=== PATIENT | male | born 1950 | race Caucasian/White ===

== ENCOUNTER 2018-03-17 11:29 | Outpatient (RCR) | payer SELFPAY | END 2018-03-18 23:59 | disposition home or self-care (01) | LOC: CR 11:29 | PROVIDERS: Visit Provider Family Medicine | DX: Z51.89 Encounter for other specified aftercare (principal); Z95.1 Presence of aortocoronary bypass graft ==

== ENCOUNTER 2018-04-14 08:00 | Outpatient (RCR) | payer SELFPAY | END 2018-04-17 23:59 | disposition home or self-care (01) | LOC: CR 08:00 | PROVIDERS: Visit Provider Family Medicine | DX: Z51.89 Encounter for other specified aftercare (principal); Z95.1 Presence of aortocoronary bypass graft ==

== ENCOUNTER 2018-05-06 12:43 | Outpatient (REF) | payer MEDICARE, BC, SELFPAY ==
[2018-05-06 13:30] LABS: HCT 45.8 % (40.0-50.0); HGB 15.1 g/dL (13.5-17.5); Mean Corpuscular Hemoglobin 31.2 pg (27.0-33.0); Mean Corpuscular Volume 94.6 fL (80-95); Mean Platelet Volume 10.5 fL (8.0-11.0); Platelet Count 218 x1000/uL (130-400); RBC 4.84 m/cumm (4.50-6.00); RBC Distribution Width 14.7 % (11.8-14.1); White Blood Cell Count 8.94 k/cumm (4.4-10.8)
[2018-05-06 13:57] LABS: ALT 49 U/L (12-78); AST 48 U/L (15-37); Albumin 3.9 g/dL (3.4-5.0); Alkaline Phosphatase 60 U/L (46-116); Anion Gap 11.3 mmol/L (3-11); BUN 13 mg/dL (7-18); Bilirubin, Total 0.5 mg/dL (0.2-1.0); CO2 27.7 mmol/L (21.0-32.0); CREATININE 1.22 mg/dL (0.70-1.30); Calcium 9.3 mg/dL (8.5-10.1); Chloride 101 mmol/L (98-107); Cholesterol 123 mg/dL (50-200); Estimated GFR 59.07 (mL/min/1.73m2); Glucose 126 mg/dL (70-100); HDL Cholesterol 38 mg/dL (40-60); LDL CHOLESTEROL 35 mg/dL (<100); Potassium 4.8 mmol/L (3.5-5.1); Sodium 140 mmol/L (136-145); Total Protein 7.7 g/dL (6.4-8.2); Triglyceride 384 mg/dL (30-150)
== END 2018-05-06 13:03 ==
LOC: NCHCN 12:43
PROVIDERS: Visit Provider Family Medicine
DX: E78.5 Hyperlipidemia, unspecified (principal); M10.9 Gout, unspecified
CPT/HCPCS: 80053; 80061; 83721; 85027; 84550

== ENCOUNTER 2018-05-17 08:00 | Outpatient (RCR) | payer SELFPAY | END 2018-05-18 23:59 | disposition home or self-care (01) | LOC: CR 08:00 | PROVIDERS: Visit Provider Family Medicine | DX: Z95.1 Presence of aortocoronary bypass graft (principal); Z51.89 Encounter for other specified aftercare ==

== ENCOUNTER 2018-06-16 08:00 | Outpatient (RCR) | payer SELFPAY | END 2018-06-17 23:59 | disposition home or self-care (01) | LOC: CR 08:00 | PROVIDERS: Visit Provider Family Medicine | DX: Z91.5 Personal history of self-harm (principal); Z51.89 Encounter for other specified aftercare ==

== ENCOUNTER 2018-07-07 08:00 | Outpatient (RCR) | payer SELFPAY | END 2018-07-18 23:59 | disposition home or self-care (01) | LOC: CR 08:00 | PROVIDERS: Visit Provider Family Medicine | DX: Z95.1 Presence of aortocoronary bypass graft (principal); Z51.89 Encounter for other specified aftercare ==

== ENCOUNTER 2018-08-18 08:00 | Outpatient (RCR) | payer SELFPAY | END 2018-08-18 23:59 | disposition home or self-care (01) | LOC: CR 08:00 | PROVIDERS: Visit Provider Family Medicine | DX: Z95.1 Presence of aortocoronary bypass graft (principal); Z51.89 Encounter for other specified aftercare ==

== ENCOUNTER 2018-09-15 12:51 | Outpatient (RCR) | payer SELFPAY | END 2018-09-15 23:59 | disposition home or self-care (01) | LOC: CR 12:51 | PROVIDERS: Visit Provider Family Medicine | DX: Z95.1 Presence of aortocoronary bypass graft (principal); Z51.89 Encounter for other specified aftercare ==

== ENCOUNTER 2018-10-13 08:00 | Outpatient (RCR) | payer SELFPAY | END 2018-10-16 23:59 | disposition home or self-care (01) | LOC: CR 08:00 | PROVIDERS: Visit Provider Family Medicine | DX: Z95.1 Presence of aortocoronary bypass graft (principal); Z51.89 Encounter for other specified aftercare ==

== ENCOUNTER 2018-11-15 08:00 | Outpatient (RCR) | payer SELFPAY | END 2018-11-15 23:59 | disposition home or self-care (01) | LOC: CR 08:00 | PROVIDERS: Visit Provider Family Medicine | DX: Z95.1 Presence of aortocoronary bypass graft (principal); Z51.89 Encounter for other specified aftercare ==

== ENCOUNTER 2018-12-15 13:31 | Outpatient (RCR) | payer SELFPAY | END 2018-12-16 23:59 | disposition home or self-care (01) | LOC: CR 13:31 | PROVIDERS: Visit Provider Family Medicine | DX: Z95.1 Presence of aortocoronary bypass graft (principal); Z51.89 Encounter for other specified aftercare ==

== ENCOUNTER 2019-01-12 11:23 | Outpatient (RCR) | payer SELFPAY | END 2019-01-15 23:59 | disposition home or self-care (01) | LOC: CR 11:23 | PROVIDERS: Visit Provider Family Medicine | DX: Z95.1 Presence of aortocoronary bypass graft (principal); Z51.89 Encounter for other specified aftercare ==

== ENCOUNTER 2019-02-14 13:26 | Outpatient (RCR) | payer SELFPAY | END 2019-02-15 23:59 | disposition home or self-care (01) | LOC: CR 13:26 | PROVIDERS: Visit Provider Family Medicine | DX: Z95.1 Presence of aortocoronary bypass graft (principal); Z51.89 Encounter for other specified aftercare ==

== ENCOUNTER 2019-03-16 08:00 | Outpatient (RCR) | payer SELFPAY | END 2019-03-18 23:59 | disposition home or self-care (01) | LOC: CR 08:00 | PROVIDERS: Visit Provider Family Medicine | DX: Z95.1 Presence of aortocoronary bypass graft (principal); Z51.89 Encounter for other specified aftercare ==

== ENCOUNTER 2019-04-13 11:56 | Outpatient (RCR) | payer SELFPAY | END 2019-04-17 23:59 | disposition home or self-care (01) | LOC: CR 11:56 | PROVIDERS: Visit Provider Family Medicine | DX: Z95.1 Presence of aortocoronary bypass graft (principal); Z51.89 Encounter for other specified aftercare ==

== ENCOUNTER 2019-05-02 10:21 | Outpatient (REF) | payer MEDICARE, BC, SELFPAY ==
[2019-05-02 22:09] LABS: Hemoglobin A1C 6.6 % (4.5-6.2)
[2019-05-02 22:16] LABS: Anion Gap 11.3 mmol/L (3-11); BUN 15 mg/dL (7-18); CO2 26.7 mmol/L (21.0-32.0); CREATININE 1.21 mg/dL (0.70-1.30); Calcium 9.3 mg/dL (8.5-10.1); Chloride 101 mmol/L (98-107); Estimated GFR 59.46 (mL/min/1.73m2); Glucose 118 mg/dL (70-100); Potassium 4.6 mmol/L (3.5-5.1); Sodium 139 mmol/L (136-145)
== END 2019-05-02 10:41 ==
LOC: NCHCN 10:21
PROVIDERS: PCP Internal Medicine; Visit Provider Internal Medicine
DX: R73.9 Hyperglycemia, unspecified (principal); E78.5 Hyperlipidemia, unspecified; I50.9 Heart failure, unspecified
CPT/HCPCS: 80048; 83036

== ENCOUNTER 2019-05-18 11:59 | Outpatient (RCR) | payer SELFPAY | END 2019-05-18 23:59 | disposition home or self-care (01) | LOC: CR 11:59 | PROVIDERS: Visit Provider Family Medicine | DX: Z95.1 Presence of aortocoronary bypass graft (principal); Z51.89 Encounter for other specified aftercare ==

== ENCOUNTER 2019-05-25 01:10 | Outpatient (CLI) | payer MEDICARE, BC, SELFPAY ==
--- NOTE | 2019-05-25 09:30 | NS.NUTBLAN_ITS ---
DESCRIPTION: Marco Javed is referred for diabetes self management for newly diagnosed type 2 diabetes. In fact he does not have 2 fasting blood sugars of 126 or greater and thus does not meet his insurance criteria for type 2 diabetes. He is seen today for Medical Nutrition Therapy to prevent progression of A1c. His has well controlled type 2 diabetes and guides him Regardless, Marco is motivated to prevent type 2 diabetes complications. Breakfast is 1 slice bread and butter with 2 eggs and an occasional bagel. Lunch was hamburger and fries with a beer out for lunch, but usually has homemade vegetable soup. After eating out he had a salad for supper. Evening snack are few chips 3 times a week or cheese. He has been eating grapes or dates daily. He has one alcoholic drink sometimes with a sweet mixer or wine daily. Marco is lactose intolerant. He states he does love bagel, bread and pasta. He walks daily and participates in cardiac rehab exercise twice weekly. INTERVENTION: Reviewed criteria for diabetes diagnosis and importance of early intensive intervention to prevent progression.Explained prevention strategies for PREVENTT2. He states he started that class once but did not find it useful and does not consider it an option at this time. Reviewed his food choices and carbohydrate impact. Reviewed diabetes food guide focused on increasing vegetables and decreasing simple sugar. Discussed increased physical activity despite his already achieving more than 160 minutes a week. He feels he could increase his time on the treadmill and walk further outside. PLAN: Marco will increase his physical activity by a few minutes every day have a 1/2 bagel for breakfast; use whole grain; limit sweets daily He will be in touch if his A1c increases in August and if questions arise in the meantime. less than 15 minutes face to face MNT
== END 2019-05-25 01:30 ==
PROVIDERS: PCP Internal Medicine; Visit Provider Dietitian, Registered
DX: R73.03 Prediabetes (principal); Z71.3 Dietary counseling and surveillance

== ENCOUNTER 2019-06-13 15:14 | Outpatient (RCR) | payer SELFPAY | END 2019-06-17 23:59 | disposition home or self-care (01) | LOC: CR 15:14 | PROVIDERS: PCP Internal Medicine; Visit Provider Family Medicine | DX: Z95.1 Presence of aortocoronary bypass graft (principal); Z51.89 Encounter for other specified aftercare ==

== ENCOUNTER 2019-07-13 08:00 | Outpatient (RCR) | payer SELFPAY | END 2019-07-18 23:59 | disposition home or self-care (01) | LOC: CR 08:00 | PROVIDERS: PCP Internal Medicine; Visit Provider Family Medicine | DX: Z95.1 Presence of aortocoronary bypass graft (principal); Z51.89 Encounter for other specified aftercare ==

== ENCOUNTER 2019-08-17 08:00 | Outpatient (RCR) | payer SELFPAY | END 2019-08-18 23:59 | disposition home or self-care (01) | LOC: CR 08:00 | PROVIDERS: PCP Internal Medicine; Visit Provider Family Medicine | DX: Z95.1 Presence of aortocoronary bypass graft (principal); Z51.89 Encounter for other specified aftercare ==

== ENCOUNTER 2019-09-07 22:14 | Outpatient (REF) | payer MEDICARE, BC, SELFPAY ==
[2019-09-07 22:32] LABS: Cholesterol 148 mg/dL (<200); HDL Cholesterol 37 mg/dL (40-60); Triglyceride 470 mg/dL (<150)
[2019-09-07 22:45] LABS: LDL CHOLESTEROL 39 mg/dL (<100)
== END 2019-09-07 22:34 ==
LOC: NCHCN 22:14
PROVIDERS: PCP Internal Medicine; Visit Provider Internal Medicine
DX: E11.9 Type 2 diabetes mellitus without complications (principal); I25.810 Atherosclerosis of coronary artery bypass graft(s) without angina pectoris; I50.9 Heart failure, unspecified; M10.9 Gout, unspecified; K21.9 Gastro-esophageal reflux disease without esophagitis
CPT/HCPCS: 80061; 83721

== ENCOUNTER 2019-09-14 08:00 | Outpatient (RCR) | payer SELFPAY | END 2019-09-16 23:59 | disposition home or self-care (01) | LOC: CR 08:00 | PROVIDERS: PCP Internal Medicine; Visit Provider Family Medicine | DX: Z95.1 Presence of aortocoronary bypass graft (principal); Z51.89 Encounter for other specified aftercare ==

== ENCOUNTER 2019-09-26 08:00 | Outpatient (RCR) | payer SELFPAY | END 2019-10-17 23:59 | disposition home or self-care (01) | LOC: CR 08:00 | PROVIDERS: PCP Internal Medicine; Visit Provider Family Medicine | DX: Z95.1 Presence of aortocoronary bypass graft (principal); Z51.89 Encounter for other specified aftercare ==

== ENCOUNTER 2019-10-31 20:06 | Emergency (ER) | payer MEDICARE, BC, SELFPAY ==
[2019-10-31] VITALS (16 sets, daily range): BP systolic 119–164; BP diastolic 54–129; PULSE 62–93; RESP 14–24; TEMP 36.6; O2SAT 94–97
--- NOTE | 2019-10-31 20:20 | ED.GENADUL_ITS ---
Discharge Plan Disposition Patient Disposition: HOME Condition: Stable Discharge Details Chief Complaint: Chest Pain Clinical Impression: Chest pain Primary Care Provider: Edd Garner ED Provider: Nallely Isaacs Home Meds and New Rx's Prescriptions: Continued clopidogrel 75 MG tablet 75 mg PO DAILY RF: 0 furosemide 40 MG tablet 40 mg PO DAILY RF: 0 aspirin 325 MG tablet 325 mg PO DAILY RF: 0 omeprazole 40 MG capsule,delayed release(DR/EC) 40 mg PO DAILY RF: 0 lisinopril 2.5 MG tablet 2.5 mg PO DAILY RF: 0 rosuvastatin [Crestor] 40 MG tablet 40 mg PO DAILY RF: 0 metoprolol tartrate 25 MG tablet 50 mg PO DAILY RF: 0 Discharge Instructions Instructions: Chest Pain (ED) Additional Instructions: Your labs and imaging are reassuring here today. However, I would like for you to follow-up promptly with your measurement specialist as we discussed. As discussed, they may advise the stress testing that we talked about. Please call Dr. Sears tomorrow, number listed below to schedule follow-up appointment. If you develop recurrent pain, shortness of breath, vomiting, radiating pain or other new/worsening symptoms I would like for you to seek care urgently once again. Referrals: Renan Sears [ NON-[facility] STAFF PHYSICIAN] - Discharge Data Discharge Date/Time-TO BE ENTERED AT DEPARTURE: 11/01/19 00:00 Medical Decision Making Patient is a pleasant 69-year-old male with past medical history of GERD, hypertension, myocardial infarction, cardiomegaly. Patient is status post CABG and reports stent placement as well. Patient is on Plavix and reports has been taking this medication as prescribed. He takes a baby aspirin daily. He repor ts that this afternoon at 1630 he was lifting a heavy trash bag when he had some central lower chest discomfort. No radiation of his pain. States that the pain is been intermittent since then. Patient reports that this does not feel like his previous myocardial infarctions. Reports that at that time, the pain is much more severe and typically radiated to his left arm. He states that he walked a mile on the treadmill prior to lifting the trash trucks and had no discomfort. States that he again went for a walk after this activity and did not experience any chest pain. Is not actively having any chest pain. Denies any shortness of breath. No fevers. No cough. Denies any nausea or vomiting. Denies any abdominal pain. Has not noted any change with intake of food. EKG was obtained. Patient is in sinus rhythm with a rate of 94. He does have an incomplete left bundle branch block. EKG was reviewed by Dr. Oconnor and was compared to previous study from 2015. Patient does not have ST elevation in V2 but this is consistent with his previously is unchanged. No acute ischemic changes are noted. On exam, patient is resting comfortably. He is noted to be a overweight male. His lungs are clear. Normal cardiac exam. He has no lower extremity swelling. No calf tenderness. He has no pain elicited with palpation about the chest. No pain with palpation about his abdomen. Plan to augment his baby aspirin and obtain cardiac evaluation. Patient believes his discomfort is likely from muscle strain associated with the heavy lifting. Patient reports to nursing staff that he had return of his hcest discomfort after cessation of his evening walk. He did take a nitro at 1800. Symptoms resolved 15 min prior to arrival (1950ish). Chest x-ray was reviewed by radiologist as follows Labs reviewed. No leukocytosis. Normal CBCFINDINGS: Lungs: No consolidation. Pleural space: No pleural effusion. No pneumothorax. Heart/Mediastinum: The heart is mildly enlarged. Bones/joints: Unremarkable. IMPRESSION: No acute cardiopulmonary disease. Glucose is elevated at 183. Magnesium slightly low at 1.7. Initial troponin is less than 0.05. Otherwise no significant abnormality. Discussed findings with the patient. Particular given the patient's past medical history, I do feel that it is appropriate to repeat some troponin. Patient continues to insist that this discomfort is likely musculoskeletal as he is able to self stress at home with exercise and not have reproduction of his symptoms. Rather, it is only with lifting. He is now reporting that he has had discomfort like this historically and it was been associated with heavy lifting he believes likely muscle strain. Repeat troponin remains less than 0.05. Patient remains asymptomatic. He and I discussed disposition. At this point, he is requesting to go home. I do feel that this is reasonable. We did discuss outpatient stress testing but he would prefer to talk to his measurement specialist. He did have an appointment with his measurement specialist later this month which have been pushed back to the January as this was routine follow-up. However, he will call them tomorrow to discuss his acute change and discuss possible need for stress testing or other further cardiac imaging. All his questions and concerns were addressed she is agreement this plan. He was given strict return precautions. HPI General Mode of arrival: ambulatory . Date/Time Provider Initiated Documentation: 10/31/19 20:08 . Limitations to Documentation: no limitations . Information obtained by: patient and RN notes reviewed . History of Present Illness 69 year old M presents to the emergency department with the chief complaint of Chest discomfort, described as mild (Denies any pain at this time), Quality is described as aching, and is localized to the chest. Patient reports no radiation. Patient started experiencing this hour(s) (1630) and it has been intermittent and now resolved. Immobilization improves symptom(s), Other factors that worsen symptoms (Heavy lifting) . Patient notes no other symptoms.. Patient did receive the following treatments prior to arrival, none Related Data Home Medications Medication Instructions Recorded Confirmed aspirin 325 mg PO DAILY 04/14/15 10/31/19 furosemide 40 mg PO DAILY 04/14/15 10/31/19 lisinopril 2.5 mg PO DAILY 04/14/15 10/31/19 metoprolol tartrate 50 mg PO DAILY 04/14/15 10/31/19 omeprazole 40 mg PO DAILY 04/14/15 10/31/19 rosuvastatin [Crestor] 40 mg PO DAILY 04/14/15 10/31/19 clopidogrel 75 mg PO DAILY 01/13/16 10/31/19 Allergies Allergy/AdvReac Type Severity Reaction Status Date / Time No Known Allergies Allergy Unverified 10/31/19 20:26 Review of Systems Constitutional Constitutional: Reports as per HPI, Denies chills, Denies fever(s), Denies headache(s), Denies lethargy and Denies poor appetite Eyes Eyes: Denies change in vision ENT Ears, Nose, Mouth, and Throat: Denies dizziness and Denies headache(s) Cardiovascular Cardiovascular: Reports as per HPI, Denies dyspnea and Denies dyspnea on exertion Respiratory Respiratory: Reports as per HPI, Denies chest congestion, Denies cough, Denies pain on inspiration, Denies pain with cough, Denies dyspnea, Denies dyspnea on exertion and Denies wheezing Gastrointestinal Gastrointestinal: Reports as per HPI, Denies abdominal pain, Denies diarrhea, Denies nausea and Denies vomiting Genitourinary Genitourinary: Denies system reviewed and no additional complaints, except as documented (denies change in urinary habits) Musculoskeletal Musculoskeletal: Reports as per HPI and Denies back pain Integumentary/Breasts Skin/Breast: Reports as per HPI and Denies rash Neurologic Neurologic: Reports as per HPI, Denies dizziness and Denies headache(s) Allergic/Immunologic Allergic/Immunologic: Denies wheezing PFSH Surgical History Colonoscopy - MAC (02/28/16) Coronary Stent Social History Smoking/Tobacco Use Status: Former Tobacco Use Quit Date: 06/14/11 Alcohol Intake: current Alcohol Intake frequency: 0-2 drinks per day Drug use: Never Substance use type: does not use Do you feel safe at home: Yes Do you feel safe in your relationship?: Yes Exam Const General: cooperative, healthy appearing, comfortable, no acute distress and well developed Nutritional Appearance: well nourished and overweight Orientation: alert, awake and oriented x3 HENMT Head: normal to inspection Ears: hearing grossly normal bilaterally Mouth: moist mucous membranes Chest Chest: normal inspection of the chest, normal palpation of entire chest wall and no crepitus Resp Effort & Inspection: normal respiratory effort, able to speak in complete sentences and no respiratory distress Auscultation: clear to auscultation bilaterally, no rales, no rhonchi and no wheezes Cardio Rate: regular rate Rhythm: regular rhythm Heart Sounds: S1 normal and S2 normal GI Inspection: normal to inspection, no edema and non-distended Palpation: soft, no hepatosplenomegaly, not firm, no guarding, not rigid and nontender Auscultation: normal bowel sounds Back/Spine/Pelvis Back: no CVA tenderness Thoracic/Lumbar Spine: thoracic and lumbar spine normal to inspection Skin General skin exam: no rashes or lesions noted Trauma: no lacerations or abrasions Neuro General: patient alert, patient awake and patient oriented x3 Cognition: normal cognition Speech: speech normal Gait: normal gait Extrem General: normal to inspection, capillary refill normal, no pedal edema, no calf tenderness and normal gait Psych Appearance: grossly normal and well kempt Mental Status: mental status grossly normal Speech and Movement: speech and movement normal
[2019-10-31] MEDS: Aspirin 81 MG CHEW 243 MG CH (20:37)
[2019-10-31 20:39] LABS: Abs Immature Grans 0.02 k/cumm (0.0-0.09); Absolute Basophil Count 0.02 k/cumm (0.0-0.2); Absolute Eosinophil Count 0.16 k/cumm (0.0-0.7); Absolute Lymphocyte Count 2.66 k/cumm (1.2-3.4); Absolute Monocyte Count 0.82 k/cumm (0.11-0.7); Absolute Neutrophil Count 5.83 k/cumm (1.2-6.7); Basophils % 0.2; Eosinophils % 1.7; HCT 45.1 % (40.0-50.0); HGB 15.2 g/dL (13.5-17.5); Immature Grans % 0.2 %; Mean Corp. HGB Concentration 33.7 g/dL (32.0-36.0); Mean Corpuscular Hemoglobin 31.9 pg (27.0-33.0); Mean Corpuscular Volume 94.7 fL (80-95); Mean Platelet Volume 9.9 fL (8.0-11.0); Monocytes % 8.6; Neutrophils % 61.3; Platelet Count 224 x1000/uL (130-400); RBC 4.76 m/cumm (4.50-6.00); RBC Distribution Width 14.4 % (11.8-14.1); White Blood Cell Count 9.51 k/cumm (4.4-10.8)
[2019-10-31 20:58] LABS: ALT 40 U/L (16-63); AST 36 U/L (15-37); Albumin 3.9 g/dL (3.4-5.0); Alkaline Phosphatase 61 U/L (46-116); Anion Gap 10.3 mmol/L (3-11); BUN 15 mg/dL (7-18); Bilirubin, Total 0.4 mg/dL (0.2-1.0); CO2 27.7 mmol/L (21.0-32.0); Calcium 9.3 mg/dL (8.5-10.1); Chloride 102 mmol/L (98-107); Glucose 183 mg/dL (74-106); Magnesium 1.7 mg/dL (1.8-2.4); Sodium 140 mmol/L (136-145)
--- NOTE | 2019-10-31 21:00 | DI.RAD_ITS ---
EXAM: XR CHEST 2V PA LATERAL CLINICAL HISTORY: CP TECHNIQUE: 2D digital imaging was performed. COMPARISON: CHEST 2 VIEWS PA,LAT from 04/14/2015 FINDINGS: MEDIASTINUM: Normal. HEART: Normal. PULMONARY VASCULATURE: Normal. LUNGS: Clear. PLEURAL SPACE: No pleural effusion or pneumothorax. BONE:Normal. OTHER FINDINGS:Normal. IMPRESSION: No acute pulmonary findings. DATA REPOSITORY: RADIATION DOSE DELIVERED:
[2019-10-31 21:02] LABS: Troponin I < 0.05 ng/Ml (<0.06)
--- NOTE | 2019-10-31 21:11 | DI.VRAD_ITS ---
PROCEDURE INFORMATION: Exam: XR Chest, 2 Views Exam date and time: 10/31/2019 8:49 PM Age: 69 years old Clinical indication: Chest pain; Type not specified; Prior surgery; Surgery date: 6+ months; Surgery type: Scarlet procedure TECHNIQUE: Imaging protocol: XR of the chest Views: 2 views. COMPARISON: CR CHEST 2 VIEWS PA,LAT 04/14/2015 9:50 PM FINDINGS: Lungs: No consolidation. Pleural space: No pleural effusion. No pneumothorax. Heart/Mediastinum: The heart is mildly enlarged. Bones/joints: Unremarkable. IMPRESSION: No acute cardiopulmonary disease. Dictated and Authenticated by: Don Gardner MD. Ordering:MARCEL Browning MD
[2019-10-31 23:41] LABS: Troponin I < 0.05 ng/Ml (<0.06)
[2019-11-01 00:01] VITALS: BP 138/60; PULSE 64; RESP 14; TEMP 36.6; O2SAT 95
== END 2019-11-01 | disposition home or self-care (01) ==
PROVIDERS: Emergency Provider Physician Assistant; PCP Internal Medicine
DX: R07.89 Other chest pain (principal); Z79.01 Long term (current) use of anticoagulants; Z95.1 Presence of aortocoronary bypass graft; Z95.818 Presence of other cardiac implants and grafts; I10 Essential (primary) hypertension
CPT/HCPCS: 80053; 93005; 99284; 71046; 83735; 84484; 85025; 93010

== ENCOUNTER 2020-09-09 14:15 | Outpatient (REF) | payer MEDICARE, BC, SELFPAY ==
[2020-09-09 13:02] LABS: HCT 46.9 % (40.0-50.0); HGB 15.7 g/dL (13.5-17.5); MCH 31.8 pg (27.0-33.0); MCHC 33.5 % (32.0-36.0); MCV 95.1 fL (80-95); MPV 10.1 fL (8.0-11.0); Platelet Count 234 10^3/uL (130-400); RBC 4.93 10^6/uL (4.36-5.78); RDW-SD 48.4 fL; WBC 7.84 10^3/uL (4.4-10.8)
[2020-09-09 13:37] LABS: Creatine Kinase 79 U/L (39-308)
[2020-09-09 17:26] LABS: ESR 40 mm/hr (<or=20)
== END 2020-09-09 14:16 | disposition home or self-care (01) ==
LOC: NCHCN 14:15
PROVIDERS: PCP Internal Medicine; Visit Provider Internal Medicine
DX: E11.9 Type 2 diabetes mellitus without complications (principal); I25.5 Ischemic cardiomyopathy; K21.9 Gastro-esophageal reflux disease without esophagitis; M10.9 Gout, unspecified; M79.18 Myalgia, other site; E66.9 Obesity, unspecified
CPT/HCPCS: 82550; 85027; 85652

== ENCOUNTER 2021-01-14 09:00 | Outpatient (RCR) | payer SELFPAY ==
[2020-12-17 15:53] VITALS: BP 127/69; PULSE 51
[2020-12-19 09:01] VITALS: BP 133/66; PULSE 57
[2020-12-24 09:00] VITALS: BP 125/63; PULSE 80
[2020-12-26 08:57] VITALS: BP 113/56; PULSE 47
[2020-12-31 08:57] VITALS: BP 117/64; PULSE 56
[2021-01-02 08:58] VITALS: BP 144/68; PULSE 57
[2021-01-07 08:52] VITALS: BP 118/71; PULSE 52
[2021-01-09 09:02] VITALS: BP 115/58; PULSE 49
[2021-01-14 09:06] VITALS: BP 117/65; PULSE 58
== END 2021-01-15 23:59 | disposition home or self-care (01) ==
LOC: CR 09:00
PROVIDERS: PCP Internal Medicine; Visit Provider Family Medicine
DX: Z51.89 Encounter for other specified aftercare (principal)

== ENCOUNTER 2021-02-13 09:00 | Outpatient (RCR) | payer SELFPAY ==
[2021-01-16 00:25] VITALS: BP 117/65; PULSE 58
[2021-01-16 08:55] VITALS: BP 131/63; PULSE 54
[2021-01-21 08:55] VITALS: BP 115/68; PULSE 73; O2SAT 95
[2021-01-23 10:09] VITALS: BP 148/79; PULSE 48
[2021-01-28 08:57] VITALS: BP 121/69; PULSE 54
[2021-02-04 09:11] VITALS: BP 129/67; PULSE 58
[2021-02-06 09:14] VITALS: BP 136/64; PULSE 63
[2021-02-11 09:04] VITALS: BP 126/63; PULSE 53
[2021-02-13 08:58] VITALS: BP 115/60; PULSE 48
== END 2021-02-15 23:59 | disposition home or self-care (01) ==
LOC: CR 09:00
PROVIDERS: PCP Internal Medicine; Visit Provider Family Medicine
DX: Z51.89 Encounter for other specified aftercare (principal)

== ENCOUNTER 2021-03-10 15:10 | Outpatient (REF) | payer MEDICARE, BC, SELFPAY ==
[2021-03-10 16:05] LABS: Anion Gap 12.3 mmol/L (3-11); BUN 19 mg/dL (7-18); CO2 24.7 mmol/L (21.0-32.0); CREATININE 1.1 mg/dL (0.70-1.30); Calcium 9.1 mg/dL (8.5-10.1); Chloride 102 mmol/L (98-107); Glucose 109 mg/dL (74-106); Potassium 4.6 mmol/L (3.5-5.1); Sodium 139 mmol/L (136-145)
== END 2021-03-10 15:11 | disposition home or self-care (01) ==
LOC: NCHCN 15:10
PROVIDERS: PCP Internal Medicine; Visit Provider Internal Medicine
DX: E11.9 Type 2 diabetes mellitus without complications (principal); N18.30 Chronic kidney disease, stage 3 unspecified
CPT/HCPCS: 80048

== ENCOUNTER 2021-03-18 09:00 | Outpatient (RCR) | payer SELFPAY ==
[2021-02-16 00:24] VITALS: BP 115/60; PULSE 48
[2021-02-18 09:09] VITALS: BP 136/82; PULSE 54
[2021-02-25 08:57] VITALS: BP 109/53; PULSE 44
[2021-02-27 08:55] VITALS: BP 115/74; PULSE 52
[2021-03-11 09:21] VITALS: BP 131/72; PULSE 52
[2021-03-13 09:01] VITALS: BP 117/56; PULSE 46
[2021-03-18 09:07] VITALS: BP 117/79; PULSE 51
== END 2021-03-18 23:59 | disposition home or self-care (01) ==
LOC: CR 09:00
PROVIDERS: PCP Internal Medicine; Visit Provider Family Medicine
DX: Z51.89 Encounter for other specified aftercare (principal); I25.2 Old myocardial infarction; Z95.5 Presence of coronary angioplasty implant and graft; I42.9 Cardiomyopathy, unspecified

== ENCOUNTER 2021-04-17 09:00 | Outpatient (RCR) | payer SELFPAY ==
[2021-03-19 00:11] VITALS: BP 117/79; PULSE 51
[2021-03-20 09:02] VITALS: BP 125/77; PULSE 56
[2021-03-25 13:26] VITALS: BP 129/76; PULSE 57
[2021-03-27 09:00] VITALS: BP 135/85; PULSE 50
[2021-04-01 09:06] VITALS: BP 112/56; PULSE 56
[2021-04-03 09:40] VITALS: BP 127/75; PULSE 53
[2021-04-08 08:59] VITALS: BP 140/70; PULSE 56
[2021-04-10 09:45] VITALS: BP 126/77; PULSE 51
[2021-04-15 09:11] VITALS: BP 137/66; PULSE 63
[2021-04-17 08:57] VITALS: BP 138/81; PULSE 55
[2021-04-22 08:59] VITALS: BP 131/78; PULSE 52
== END 2021-04-17 23:59 | disposition home or self-care (01) ==
LOC: CR 09:00
PROVIDERS: PCP Internal Medicine; Visit Provider Family Medicine
DX: Z51.89 Encounter for other specified aftercare (principal)

== ENCOUNTER 2021-05-15 09:00 | Outpatient (RCR) | payer SELFPAY ==
[2021-04-18 00:07] VITALS: BP 138/81; PULSE 55
[2021-04-24 09:04] VITALS: BP 137/85; PULSE 56
[2021-04-29 09:47] VITALS: BP 125/51; PULSE 55
[2021-05-01 09:24] VITALS: BP 137/84; PULSE 48
[2021-05-06 09:01] VITALS: BP 115/66; PULSE 52
[2021-05-08 08:57] VITALS: BP 132/59; PULSE 54
[2021-05-13 09:11] VITALS: BP 119/66; PULSE 58
[2021-05-15 09:02] VITALS: BP 132/77; PULSE 51
== END 2021-05-18 23:59 | disposition home or self-care (01) ==
LOC: CR 09:00
PROVIDERS: PCP Internal Medicine; Visit Provider Family Medicine
DX: Z51.89 Encounter for other specified aftercare (principal); R69 Illness, unspecified

== ENCOUNTER 2021-06-17 09:00 | Outpatient (RCR) | payer SELFPAY ==
[2021-05-19 00:06] VITALS: BP 132/77; PULSE 51
[2021-05-20 09:06] VITALS: BP 125/82; PULSE 49
[2021-05-22 08:55] VITALS: BP 128/89; PULSE 56
[2021-05-27 09:10] VITALS: BP 131/60; PULSE 63
[2021-06-05 08:58] VITALS: BP 143/81; PULSE 67
[2021-06-10 09:05] VITALS: BP 130/80; PULSE 71
[2021-06-17 09:26] VITALS: BP 125/62; PULSE 50
== END 2021-06-17 23:59 | disposition home or self-care (01) ==
LOC: CR 09:00
PROVIDERS: PCP Internal Medicine; Visit Provider Family Medicine
DX: Z51.89 Encounter for other specified aftercare (principal); R69 Illness, unspecified

== ENCOUNTER 2021-07-17 09:00 | Outpatient (RCR) | payer SELFPAY ==
[2021-06-18 00:15] VITALS: BP 125/62; PULSE 50
[2021-06-19 08:58] VITALS: BP 134/79; PULSE 56
[2021-06-24 10:28] VITALS: BP 136/65; PULSE 57
[2021-06-26 08:59] VITALS: BP 122/58; PULSE 67
[2021-07-01 09:00] VITALS: BP 140/59; PULSE 45
[2021-07-03 09:29] VITALS: BP 136/79; PULSE 48
[2021-07-08 08:56] VITALS: BP 125/63; PULSE 60
[2021-07-10 08:56] VITALS: BP 138/84; PULSE 56
[2021-07-15 09:02] VITALS: BP 137/72; PULSE 55
[2021-07-17 09:03] VITALS: BP 140/56; PULSE 57
== END 2021-07-18 23:59 | disposition home or self-care (01) ==
LOC: CR 09:00
PROVIDERS: PCP Internal Medicine; Visit Provider Family Medicine
DX: Z51.89 Encounter for other specified aftercare (principal); R69 Illness, unspecified

== ENCOUNTER 2021-07-21 15:09 | Outpatient (RCR) | payer SELFPAY ==
[2021-07-19 00:16] VITALS: BP 140/56; PULSE 57
== END 2021-08-18 23:59 | disposition home or self-care (01) ==
LOC: CR 15:09
PROVIDERS: PCP Internal Medicine; Visit Provider Family Medicine
DX: R69 Illness, unspecified (principal)

== ENCOUNTER 2021-10-14 09:00 | Outpatient (RCR) | payer SELFPAY ==
[2021-09-16 09:27] VITALS: BP 134/62; PULSE 52
[2021-09-18 09:17] VITALS: BP 126/64; PULSE 57
[2021-09-23 08:55] VITALS: BP 119/61; PULSE 56
[2021-09-25 09:24] VITALS: BP 134/77; PULSE 60
[2021-09-30 09:09] VITALS: BP 120/64; PULSE 54
[2021-10-02 09:02] VITALS: BP 111/61; PULSE 57
[2021-10-07 08:54] VITALS: BP 129/58; PULSE 57; O2SAT 96
[2021-10-09 09:03] VITALS: BP 139/69; PULSE 55
[2021-10-14 08:53] VITALS: BP 137/64; PULSE 62
[2021-10-16 11:41] VITALS: BP 136/66; PULSE 74
== END 2021-10-16 23:59 | disposition home or self-care (01) ==
LOC: CR 09:00
PROVIDERS: PCP Internal Medicine; Visit Provider Family Medicine
DX: R69 Illness, unspecified (principal)

== ENCOUNTER 2021-11-13 09:00 | Outpatient (RCR) | payer SELFPAY ==
[2021-10-17 00:16] VITALS: BP 136/66; PULSE 74
[2021-10-21 09:02] VITALS: BP 125/64; PULSE 57
[2021-10-23 09:04] VITALS: BP 122/59; PULSE 52
[2021-10-28 09:17] VITALS: BP 140/69; PULSE 54
[2021-10-30 08:57] VITALS: BP 138/68; PULSE 63
[2021-11-04 09:42] VITALS: BP 123/65; PULSE 62
[2021-11-06 09:48] VITALS: BP 126/62; PULSE 62; O2SAT 95
[2021-11-11 08:56] VITALS: BP 129/65; PULSE 50
[2021-11-13 09:01] VITALS: BP 138/67; PULSE 60
== END 2021-11-15 23:59 | disposition home or self-care (01) ==
LOC: CR 09:00
PROVIDERS: PCP Internal Medicine; Visit Provider Internal Medicine Cardiovascular Disease
DX: R69 Illness, unspecified (principal)

== ENCOUNTER 2021-12-16 08:58 | Outpatient (RCR) | payer SELFPAY ==
[2021-11-16 00:07] VITALS: BP 138/67; PULSE 60
[2021-11-18 09:08] VITALS: BP 137/64; PULSE 66
[2021-11-20 08:58] VITALS: BP 131/69; PULSE 56
[2021-11-25 09:00] VITALS: BP 131/67; PULSE 59
[2021-11-27 09:00] VITALS: BP 129/61; PULSE 49
[2021-12-02 10:12] VITALS: BP 119/67; PULSE 55
[2021-12-09 09:34] VITALS: BP 140/57; PULSE 62
[2021-12-11 09:17] VITALS: BP 128/62; PULSE 54
[2021-12-16 08:56] VITALS: BP 119/67; PULSE 55
== END 2021-12-16 23:59 | disposition home or self-care (01) ==
LOC: CR 08:58
PROVIDERS: PCP Internal Medicine; Visit Provider Internal Medicine Cardiovascular Disease
DX: R69 Illness, unspecified (principal)

== ENCOUNTER 2022-01-15 15:05 | Outpatient (RCR) | payer SELFPAY ==
[2021-12-17 00:04] VITALS: BP 119/67; PULSE 55
[2021-12-23 08:57] VITALS: BP 120/58; PULSE 52
[2021-12-25 09:11] VITALS: BP 128/63; PULSE 53
[2021-12-30 09:32] VITALS: BP 132/64; PULSE 52
[2022-01-01 09:03] VITALS: BP 137/65; PULSE 59
[2022-01-06 09:02] VITALS: BP 128/58; PULSE 50
[2022-01-08 09:01] VITALS: BP 132/68; PULSE 45
[2022-01-13 09:29] VITALS: BP 138/64; PULSE 54
[2022-01-15 09:00] VITALS: BP 130/67; PULSE 58
== END 2022-01-15 23:59 | disposition home or self-care (01) ==
LOC: CR 15:05
PROVIDERS: PCP Internal Medicine; Visit Provider Internal Medicine Cardiovascular Disease
DX: R69 Illness, unspecified (principal)

== ENCOUNTER 2022-02-10 09:00 | Outpatient (RCR) | payer SELFPAY ==
[2022-01-20 09:20] VITALS: BP 133/62; PULSE 57
[2022-01-22 09:13] VITALS: BP 129/60; PULSE 56
[2022-01-27 08:54] VITALS: BP 113/54; PULSE 64
[2022-01-29 08:57] VITALS: BP 117/62; PULSE 57
[2022-02-03 08:58] VITALS: BP 119/56; PULSE 56
[2022-02-05 11:16] VITALS: BP 135/67; PULSE 57
[2022-02-10 10:07] VITALS: BP 123/66; PULSE 53
== END 2022-02-15 23:59 | disposition home or self-care (01) ==
LOC: CR 09:00
PROVIDERS: PCP Internal Medicine; Visit Provider Internal Medicine Cardiovascular Disease
DX: R69 Illness, unspecified (principal)

== ENCOUNTER 2022-02-11 18:40 | Outpatient (REF) | payer MEDICARE, BC, SELFPAY ==
[2022-02-11 20:18] LABS: Anion Gap 7.3 mmol/L (3-11); BUN 16 mg/dL (7-18); CO2 26.7 mmol/L (21.0-32.0); CREATININE 1.2 mg/dL (0.70-1.30); Calcium 8.8 mg/dL (8.5-10.1); Chloride 102 mmol/L (98-107); Estimated GFR 59.51 (mL/min/1.73m2); Glucose 135 mg/dL (74-106); Sodium 136 mmol/L (136-145)
== END 2022-02-11 18:41 | disposition home or self-care (01) ==
LOC: NCHCN 18:40
PROVIDERS: PCP Internal Medicine; Visit Provider Internal Medicine
DX: N18.30 Chronic kidney disease, stage 3 unspecified (principal)
CPT/HCPCS: 80048

== ENCOUNTER 2022-03-17 09:00 | Outpatient (RCR) | payer SELFPAY ==
[2022-02-16 00:15] VITALS: BP 123/66; PULSE 53
[2022-02-19 09:22] VITALS: BP 133/86; PULSE 51
[2022-02-26 09:03] VITALS: BP 139/71; PULSE 55
[2022-03-03 08:54] VITALS: BP 125/61; PULSE 63
[2022-03-05 08:54] VITALS: BP 115/73; PULSE 48
[2022-03-10 08:52] VITALS: BP 120/60; PULSE 54
[2022-03-12 08:56] VITALS: BP 117/72; PULSE 58
[2022-03-17 09:01] VITALS: BP 145/87; PULSE 53
[2022-03-17 09:54] VITALS: BP 125/68
== END 2022-03-18 23:59 | disposition home or self-care (01) ==
LOC: CR 09:00
PROVIDERS: PCP Internal Medicine; Visit Provider Internal Medicine Cardiovascular Disease
DX: R69 Illness, unspecified (principal)

== ENCOUNTER 2022-04-16 08:54 | Outpatient (RCR) | payer SELFPAY ==
[2022-03-19 00:18] VITALS: BP 125/68; PULSE 53
[2022-03-19 09:05] VITALS: BP 127/64; PULSE 48
[2022-03-24 09:01] VITALS: BP 138/82; PULSE 56
[2022-03-26 08:56] VITALS: BP 120/64; PULSE 52
[2022-03-31 08:56] VITALS: BP 135/71; PULSE 55
[2022-03-31 09:46] VITALS: BP 112/61
[2022-04-02 08:57] VITALS: BP 129/74; PULSE 49
[2022-04-07 08:49] VITALS: BP 118/64; PULSE 50
[2022-04-09 08:56] VITALS: BP 128/58; PULSE 50
[2022-04-14 08:54] VITALS: BP 121/58; PULSE 52
[2022-04-16 08:53] VITALS: BP 122/54; PULSE 55
== END 2022-04-17 23:59 | disposition home or self-care (01) ==
LOC: CR 08:54
PROVIDERS: PCP Internal Medicine; Visit Provider Internal Medicine Cardiovascular Disease
DX: R69 Illness, unspecified (principal)

== ENCOUNTER 2022-05-14 08:55 | Outpatient (RCR) | payer SELFPAY ==
[2022-04-18 00:11] VITALS: BP 122/54; PULSE 55
[2022-04-21 08:55] VITALS: BP 116/49; PULSE 50
[2022-04-23 08:54] VITALS: BP 125/63; PULSE 54
[2022-04-28 08:54] VITALS: BP 128/59; PULSE 52
[2022-04-30 09:32] VITALS: BP 120/52; PULSE 51
[2022-05-05 08:59] VITALS: BP 117/57; PULSE 61
[2022-05-07 09:52] VITALS: BP 125/50; PULSE 52
[2022-05-12 08:58] VITALS: BP 118/56; PULSE 54
== END 2022-05-18 23:59 | disposition home or self-care (01) ==
LOC: CR 08:55
PROVIDERS: PCP Internal Medicine; Visit Provider Internal Medicine Cardiovascular Disease
DX: R69 Illness, unspecified (principal)
CPT/HCPCS: S9472

== ENCOUNTER 2022-06-16 09:04 | Outpatient (RCR) | payer SELFPAY ==
[2022-05-19 00:17] VITALS: BP 118/56; PULSE 54
[2022-05-19 11:34] VITALS: BP 125/57; PULSE 52
[2022-05-21 08:59] VITALS: BP 137/55; PULSE 55
[2022-05-26 08:59] VITALS: BP 130/62; PULSE 47
[2022-05-28 08:54] VITALS: BP 105/49; PULSE 55
[2022-06-02 08:55] VITALS: BP 126/52; PULSE 60
[2022-06-04 08:53] VITALS: BP 139/65; PULSE 49
[2022-06-09 08:50] VITALS: BP 127/56; PULSE 49
[2022-06-16 09:12] VITALS: BP 119/65; PULSE 63
== END 2022-06-17 23:59 | disposition home or self-care (01) ==
LOC: CR 09:04
PROVIDERS: PCP Internal Medicine; Visit Provider Internal Medicine Cardiovascular Disease
DX: R69 Illness, unspecified (principal)

== ENCOUNTER 2022-07-16 08:51 | Outpatient (RCR) | payer SELFPAY ==
[2022-06-18 00:08] VITALS: BP 119/65; PULSE 63
[2022-06-18 09:31] VITALS: BP 129/63; PULSE 57
[2022-06-23 10:10] VITALS: BP 130/66; PULSE 55
[2022-06-25 09:00] VITALS: BP 121/52; PULSE 54
[2022-06-30 08:59] VITALS: BP 123/59; PULSE 58
[2022-07-02 08:57] VITALS: BP 132/64; PULSE 55
[2022-07-07 08:57] VITALS: BP 135/74; PULSE 59
[2022-07-09 09:27] VITALS: BP 119/53; PULSE 57
[2022-07-14 08:56] VITALS: BP 118/66; PULSE 61
[2022-07-16 08:54] VITALS: BP 113/63; PULSE 64
== END 2022-07-18 23:59 | disposition home or self-care (01) ==
LOC: CR 08:51
PROVIDERS: PCP Internal Medicine; Visit Provider Internal Medicine Cardiovascular Disease
DX: R69 Illness, unspecified (principal)

== ENCOUNTER 2022-08-18 09:07 | Outpatient (RCR) | payer SELFPAY ==
[2022-07-19 00:18] VITALS: BP 113/63; PULSE 64
[2022-07-21 09:03] VITALS: BP 133/85; PULSE 56
[2022-07-23 08:53] VITALS: BP 125/64; PULSE 61
[2022-07-28 09:01] VITALS: BP 135/60; PULSE 53
[2022-07-30 09:34] VITALS: BP 125/61; PULSE 55
[2022-08-04 09:07] VITALS: BP 121/57; PULSE 51
[2022-08-11 09:07] VITALS: BP 138/67; PULSE 63
[2022-08-18 09:28] VITALS: BP 136/63; PULSE 58
== END 2022-08-18 23:59 | disposition home or self-care (01) ==
LOC: CR 09:07
PROVIDERS: PCP Internal Medicine; Visit Provider Internal Medicine Cardiovascular Disease
DX: R69 Illness, unspecified (principal)

== ENCOUNTER 2022-10-15 09:01 | Outpatient (RCR) | payer SELFPAY ==
[2022-09-16 00:16] VITALS: BP 133/65; PULSE 56
[2022-09-17 09:00] VITALS: BP 135/66; PULSE 62
[2022-09-24 09:04] VITALS: BP 133/65; PULSE 53
[2022-10-01 09:00] VITALS: BP 124/70; PULSE 64
[2022-10-06 09:31] VITALS: BP 120/66; PULSE 56
[2022-10-08 09:09] VITALS: BP 135/63; PULSE 51
[2022-10-13 09:12] VITALS: BP 138/62; PULSE 60
[2022-10-15 09:00] VITALS: BP 137/56; PULSE 51
[2022-10-20 08:58] VITALS: BP 125/59; PULSE 47
== END 2022-10-16 23:59 | disposition home or self-care (01) ==
LOC: CR 09:01
PROVIDERS: PCP Internal Medicine; Visit Provider Internal Medicine Cardiovascular Disease

== ENCOUNTER 2022-11-12 08:57 | Outpatient (RCR) | payer SELFPAY ==
[2022-10-17 00:20] VITALS: BP 137/56; PULSE 51
[2022-10-22 09:05] VITALS: BP 134/63; PULSE 63
[2022-10-27 08:58] VITALS: BP 140/63; PULSE 61
[2022-10-29 09:01] VITALS: BP 132/58; PULSE 49
[2022-11-03 08:57] VITALS: BP 128/61; PULSE 58
[2022-11-05 09:00] VITALS: BP 130/63; PULSE 57
[2022-11-10 10:12] VITALS: BP 135/64; PULSE 60
[2022-11-12 09:11] VITALS: BP 129/61; PULSE 57
== END 2022-11-15 23:59 | disposition home or self-care (01) ==
LOC: CR 08:57
PROVIDERS: PCP Internal Medicine; Visit Provider Internal Medicine Cardiovascular Disease
DX: R69 Illness, unspecified (principal)

== ENCOUNTER 2022-12-15 09:06 | Outpatient (RCR) | payer SELFPAY ==
[2022-11-16 00:20] VITALS: BP 129/61; PULSE 57
[2022-11-17 09:16] VITALS: BP 129/66; PULSE 61
[2022-11-19 09:12] VITALS: BP 120/57; PULSE 54
[2022-11-24 09:11] VITALS: BP 126/57; PULSE 51
[2022-11-26 09:28] VITALS: BP 147/59; PULSE 56
[2022-12-01 09:03] VITALS: BP 128/59; PULSE 58
[2022-12-03 08:58] VITALS: BP 133/53; PULSE 54
[2022-12-15 09:31] VITALS: BP 132/63; PULSE 60
== END 2022-12-16 23:59 | disposition home or self-care (01) ==
LOC: CR 09:06
PROVIDERS: PCP Internal Medicine; Visit Provider Internal Medicine Cardiovascular Disease

== ENCOUNTER 2023-01-14 09:20 | Outpatient (RCR) | payer SELFPAY ==
[2022-12-17 00:18] VITALS: BP 132/63; PULSE 60
[2022-12-17 09:18] VITALS: BP 131/59; PULSE 62
[2022-12-22 09:17] VITALS: BP 139/62; PULSE 53
[2022-12-24 09:01] VITALS: BP 123/61; PULSE 64
[2022-12-29 08:57] VITALS: BP 138/68; PULSE 60
[2022-12-31 09:01] VITALS: BP 123/62; PULSE 56
[2023-01-05 09:12] VITALS: BP 141/79; PULSE 83
[2023-01-07 08:53] VITALS: BP 134/63; PULSE 51
[2023-01-12 09:11] VITALS: BP 141/61; PULSE 62
[2023-01-14 09:24] VITALS: BP 128/63; PULSE 61
== END 2023-01-15 23:59 | disposition home or self-care (01) ==
LOC: CR 09:20
PROVIDERS: PCP Internal Medicine; Visit Provider Internal Medicine Cardiovascular Disease
DX: R69 Illness, unspecified (principal)

== ENCOUNTER 2023-02-11 09:03 | Outpatient (RCR) | payer SELFPAY ==
[2023-01-16 00:18] VITALS: BP 128/63; PULSE 61
[2023-01-21 09:05] VITALS: BP 125/61; PULSE 51
[2023-01-28 09:31] VITALS: BP 139/58; PULSE 58
[2023-02-02 09:10] VITALS: BP 124/64; PULSE 54
[2023-02-04 09:06] VITALS: BP 110/65; PULSE 41
[2023-02-04 09:11] VITALS: BP 123/62; PULSE 50
[2023-02-09 09:14] VITALS: BP 124/48; PULSE 50
[2023-02-11 09:07] VITALS: BP 131/55; PULSE 51
== END 2023-02-15 23:59 | disposition home or self-care (01) ==
LOC: CR 09:03
PROVIDERS: PCP Internal Medicine; Visit Provider Internal Medicine Cardiovascular Disease
DX: R69 Illness, unspecified (principal)

== ENCOUNTER 2023-03-08 10:20 | Outpatient (REF) | payer MEDICARE, BC, SELFPAY ==
[2023-03-08 15:20] LABS: Anion Gap 9.5 mmol/L (3-11); BUN 16 mg/dL (7-18); CO2 27.5 mmol/L (21.0-32.0); CREATININE 1.2 mg/dL (0.70-1.30); Calcium 9.8 mg/dL (8.5-10.1); Chloride 101 mmol/L (98-107); Estimated GFR 63.85 (mL/min/1.73m2); Glucose 151 mg/dL (74-106); Potassium 4.6 mmol/L (3.5-5.1); Sodium 138 mmol/L (136-145)
[2023-03-08 16:45] LABS: Hemoglobin A1C 6.4 % (<5.7)
== END 2023-03-08 10:21 | disposition home or self-care (01) ==
LOC: NCHCN 10:20
PROVIDERS: PCP Internal Medicine; Visit Provider Internal Medicine
DX: E11.9 Type 2 diabetes mellitus without complications (principal); N18.30 Chronic kidney disease, stage 3 unspecified
CPT/HCPCS: 80048; 83036

== ENCOUNTER 2023-03-18 09:10 | Outpatient (RCR) | payer SELFPAY ==
[2023-02-16 00:15] VITALS: BP 131/55; PULSE 51
[2023-02-16 09:11] VITALS: BP 119/64; PULSE 49
[2023-02-18 09:17] VITALS: BP 124/59; PULSE 50
[2023-02-23 08:59] VITALS: BP 117/57; PULSE 54
[2023-02-25 09:29] VITALS: BP 116/58; PULSE 54
[2023-03-02 09:28] VITALS: BP 121/62; PULSE 54
[2023-03-04 09:08] VITALS: BP 127/57; PULSE 55
[2023-03-09 08:56] VITALS: BP 121/52; PULSE 57
[2023-03-11 09:16] VITALS: BP 123/55; PULSE 55
[2023-03-16 08:55] VITALS: BP 119/71; PULSE 51
[2023-03-18 09:19] VITALS: BP 130/56; PULSE 49
== END 2023-03-18 23:59 | disposition home or self-care (01) ==
LOC: CR 09:10
PROVIDERS: PCP Internal Medicine; Visit Provider Internal Medicine Cardiovascular Disease
DX: R69 Illness, unspecified (principal)

== ENCOUNTER 2023-04-15 09:07 | Outpatient (RCR) | payer SELFPAY ==
[2023-03-19 00:21] VITALS: BP 130/56; PULSE 49
[2023-03-23 09:13] VITALS: BP 134/71; PULSE 56
[2023-03-25 09:28] VITALS: BP 117/56; PULSE 58
[2023-03-30 09:10] VITALS: BP 126/61; PULSE 49
[2023-04-01 10:21] VITALS: BP 122/59; PULSE 46
[2023-04-06 09:05] VITALS: BP 118/59; PULSE 47
[2023-04-08 09:16] VITALS: BP 120/55; PULSE 45
[2023-04-13 09:14] VITALS: BP 129/57; PULSE 51
[2023-04-15 09:15] VITALS: BP 144/62; PULSE 44
[2023-04-22 09:15] VITALS: BP 114/63; PULSE 53
== END 2023-04-17 23:59 | disposition home or self-care (01) ==
LOC: CR 09:07
PROVIDERS: PCP Internal Medicine; Visit Provider Internal Medicine Cardiovascular Disease
DX: R69 Illness, unspecified (principal)

== ENCOUNTER 2023-05-18 09:05 | Outpatient (RCR) | payer SELFPAY ==
[2023-04-18 00:17] VITALS: BP 144/62; PULSE 44
[2023-04-20 09:00] VITALS: BP 121/58; PULSE 70
[2023-04-27 09:14] VITALS: BP 127/52; PULSE 45
[2023-04-29 09:06] VITALS: BP 120/59; PULSE 49
[2023-05-04 09:08] VITALS: BP 131/58; PULSE 45
[2023-05-06 09:29] VITALS: BP 131/60; PULSE 46
[2023-05-11 09:20] VITALS: BP 134/61; PULSE 50
[2023-05-13 09:02] VITALS: BP 115/57; PULSE 53
[2023-05-18 09:02] VITALS: BP 120/63; PULSE 54
[2023-05-20 09:10] VITALS: BP 133/59; PULSE 52
== END 2023-05-18 23:59 | disposition home or self-care (01) ==
LOC: CR 09:05
PROVIDERS: PCP Internal Medicine; Visit Provider Internal Medicine Cardiovascular Disease
DX: R69 Illness, unspecified (principal)

== ENCOUNTER 2023-06-17 09:15 | Outpatient (RCR) | payer SELFPAY ==
[2023-05-19 00:21] VITALS: BP 144/62; PULSE 44
[2023-05-25 08:58] VITALS: BP 142/55; PULSE 52
[2023-05-27 09:09] VITALS: BP 134/58; PULSE 54
[2023-06-01 09:11] VITALS: BP 123/63; PULSE 52
[2023-06-03 09:28] VITALS: BP 131/62; PULSE 45
[2023-06-08 09:21] VITALS: BP 129/74; PULSE 51
[2023-06-15 09:08] VITALS: BP 129/54; PULSE 49
[2023-06-17 09:05] VITALS: BP 116/58; PULSE 50
== END 2023-06-17 23:59 | disposition home or self-care (01) ==
LOC: CR 09:15
PROVIDERS: PCP Internal Medicine; Visit Provider Internal Medicine Cardiovascular Disease
DX: R69 Illness, unspecified (principal)

== ENCOUNTER 2023-07-15 09:59 | Outpatient (RCR) | payer SELFPAY ==
[2023-06-18 00:11] VITALS: BP 144/62; PULSE 44
[2023-06-22 09:00] VITALS: BP 133/65; PULSE 52
[2023-06-24 08:56] VITALS: BP 114/60; PULSE 50
[2023-07-01 10:51] VITALS: BP 125/59; PULSE 55
[2023-07-08 09:07] VITALS: BP 132/62; PULSE 52
[2023-07-13 09:03] VITALS: BP 122/54; PULSE 58
[2023-07-15 08:58] VITALS: BP 137/65; PULSE 55
== END 2023-07-18 23:59 | disposition home or self-care (01) ==
LOC: CR 09:59
PROVIDERS: PCP Internal Medicine; Visit Provider Internal Medicine Cardiovascular Disease
DX: R69 Illness, unspecified (principal)

== ENCOUNTER 2023-08-17 08:59 | Outpatient (RCR) | payer SELFPAY ==
[2023-07-19 00:19] VITALS: BP 144/62; PULSE 44
[2023-07-20 09:15] VITALS: BP 127/53; PULSE 55
[2023-07-22 09:41] VITALS: BP 127/59; PULSE 51
[2023-07-27 09:20] VITALS: BP 120/57; PULSE 50
[2023-07-29 11:17] VITALS: BP 138/60; PULSE 60
[2023-08-03 09:00] VITALS: BP 128/59; PULSE 50
[2023-08-05 10:02] VITALS: BP 127/65; PULSE 46
[2023-08-10 09:10] VITALS: BP 124/56; PULSE 57
[2023-08-12 09:19] VITALS: BP 135/53; PULSE 49
[2023-08-17 09:02] VITALS: BP 128/65; PULSE 48
== END 2023-08-18 23:59 | disposition home or self-care (01) ==
LOC: CR 08:59
PROVIDERS: PCP Internal Medicine; Visit Provider Internal Medicine Interventional Cardiology
DX: R69 Illness, unspecified (principal)

== ENCOUNTER 2023-09-09 15:45 | Outpatient (REF) | payer MEDICARE, BC, SELFPAY ==
[2023-09-09 21:51] LABS: Hemoglobin A1C 6.4 % (<5.7)
== END 2023-09-09 15:46 | disposition home or self-care (01) ==
LOC: NCHCN 15:45
PROVIDERS: PCP Internal Medicine; Visit Provider Family Medicine
DX: R73.03 Prediabetes (principal)
CPT/HCPCS: 83036

== ENCOUNTER 2023-09-14 09:54 | Outpatient (RCR) | payer SELFPAY ==
[2023-08-19 00:24] VITALS: BP 144/62; PULSE 44
[2023-08-19 08:56] VITALS: BP 113/63; PULSE 60
[2023-08-24 09:00] VITALS: BP 120/59; PULSE 49
[2023-08-26 10:08] VITALS: BP 128/68; PULSE 61
[2023-08-31 09:02] VITALS: BP 112/58; PULSE 54
[2023-09-02 09:07] VITALS: BP 113/53; PULSE 53; O2SAT 95
[2023-09-07 13:18] VITALS: BP 130/62; PULSE 50
[2023-09-09 09:21] VITALS: BP 121/58; PULSE 56
[2023-09-14 10:18] VITALS: BP 128/56; PULSE 67
== END 2023-09-16 23:59 | disposition home or self-care (01) ==
LOC: CR 09:54
PROVIDERS: PCP Internal Medicine; Visit Provider Internal Medicine Cardiovascular Disease
DX: R69 Illness, unspecified (principal)

== ENCOUNTER 2023-10-14 09:00 | Outpatient (RCR) | payer SELFPAY ==
[2023-09-17 00:23] VITALS: BP 144/62; PULSE 44
[2023-09-23 09:00] VITALS: BP 136/70; PULSE 57
[2023-09-28 09:05] VITALS: BP 137/59; PULSE 55
[2023-09-30 09:37] VITALS: BP 116/51; PULSE 57
[2023-10-05 09:00] VITALS: BP 119/52; PULSE 57
[2023-10-07 08:57] VITALS: BP 130/59; PULSE 55
[2023-10-12 09:00] VITALS: BP 118/57; PULSE 54
[2023-10-14 09:35] VITALS: BP 121/69; PULSE 68
== END 2023-10-17 23:59 | disposition home or self-care (01) ==
LOC: CR 09:00
PROVIDERS: PCP Internal Medicine; Visit Provider Internal Medicine Cardiovascular Disease
DX: R69 Illness, unspecified (principal)

== ENCOUNTER 2023-11-16 09:02 | Outpatient (RCR) | payer SELFPAY ==
[2023-10-19 10:14] VITALS: BP 116/56; PULSE 51
[2023-10-26 09:15] VITALS: BP 125/57; PULSE 59
[2023-10-28 08:55] VITALS: BP 124/53; PULSE 56
[2023-11-02 09:12] VITALS: BP 118/56; PULSE 51
[2023-11-04 08:58] VITALS: BP 119/51; PULSE 46
[2023-11-09 09:03] VITALS: BP 120/68; PULSE 56
[2023-11-11 09:14] VITALS: BP 114/62; PULSE 53
[2023-11-16 09:00] VITALS: BP 123/62; PULSE 54
== END 2023-11-16 23:59 | disposition home or self-care (01) ==
LOC: CR 09:02
PROVIDERS: PCP Internal Medicine; Visit Provider Internal Medicine Cardiovascular Disease
DX: R69 Illness, unspecified (principal)

== ENCOUNTER 2023-12-16 09:21 | Outpatient (RCR) | payer SELFPAY ==
[2023-11-17 00:28] VITALS: BP 123/62; PULSE 54
[2023-11-18 09:02] VITALS: BP 121/67; PULSE 52; O2SAT 96
[2023-11-23 09:10] VITALS: BP 104/65; PULSE 62
[2023-11-25 10:39] VITALS: BP 110/63; PULSE 55
[2023-11-30 09:14] VITALS: BP 125/53; PULSE 49
[2023-12-02 08:53] VITALS: BP 136/58; PULSE 52
[2023-12-07 09:03] VITALS: BP 132/71; PULSE 61
[2023-12-09 10:08] VITALS: BP 117/60; PULSE 55
[2023-12-14 09:14] VITALS: BP 132/59; PULSE 59
[2023-12-16 09:15] VITALS: BP 130/65; PULSE 54
== END 2023-12-17 23:59 | disposition home or self-care (01) ==
LOC: CR 09:21
PROVIDERS: PCP Internal Medicine; Visit Provider Internal Medicine Cardiovascular Disease
DX: R69 Illness, unspecified (principal)

== ENCOUNTER 2024-01-13 09:03 | Outpatient (RCR) | payer SELFPAY ==
[2023-12-18 00:11] VITALS: BP 123/62; PULSE 54
[2023-12-21 09:24] VITALS: BP 121/53; PULSE 54
[2023-12-23 09:25] VITALS: BP 131/60; PULSE 55
[2023-12-28 09:08] VITALS: BP 134/62; PULSE 54
[2023-12-30 12:25] VITALS: BP 119/54; PULSE 45
[2024-01-04 09:17] VITALS: BP 123/70; PULSE 53
[2024-01-06 09:24] VITALS: BP 113/68; PULSE 56
[2024-01-11 09:21] VITALS: BP 113/59; PULSE 52
[2024-01-13 09:14] VITALS: BP 119/54; PULSE 54
== END 2024-01-16 23:59 | disposition home or self-care (01) ==
LOC: CR 09:03
PROVIDERS: PCP Internal Medicine; Visit Provider Internal Medicine Cardiovascular Disease
DX: R69 Illness, unspecified (principal)

== ENCOUNTER 2024-02-10 09:00 | Outpatient (RCR) | payer SELFPAY ==
[2024-01-17 00:20] VITALS: BP 123/62; PULSE 54
[2024-01-18 10:02] VITALS: BP 107/68; PULSE 62
[2024-01-25 08:56] VITALS: BP 128/56; PULSE 53; O2SAT 93
[2024-02-01 09:22] VITALS: BP 116/59; PULSE 52
[2024-02-03 12:57] VITALS: BP 119/56; PULSE 55
[2024-02-08 09:05] VITALS: BP 119/55; PULSE 46
[2024-02-10 09:00] VITALS: BP 122/57; PULSE 47
== END 2024-02-16 23:59 | disposition home or self-care (01) ==
LOC: CR 09:00
PROVIDERS: PCP Internal Medicine; Visit Provider Internal Medicine Cardiovascular Disease
DX: R69 Illness, unspecified (principal)

== ENCOUNTER 2024-03-14 13:30 | Outpatient (REF) | payer MEDICARE, BC, SELFPAY | END 2024-03-14 13:31 | disposition home or self-care (01) | LOC: NCHCN 13:30 | PROVIDERS: PCP Internal Medicine; Visit Provider Family Medicine | DX: E11.9 Type 2 diabetes mellitus without complications (principal) | CPT/HCPCS: 80053; 85027; 82043; 82570 ==

== ENCOUNTER 2024-03-16 09:01 | Outpatient (RCR) | payer SELFPAY ==
[2024-02-17 00:13] VITALS: BP 123/62; PULSE 54
[2024-02-17 09:00] VITALS: BP 145/64; PULSE 53
[2024-02-22 09:14] VITALS: BP 139/57; PULSE 55
[2024-02-24 10:20] VITALS: BP 121/64; PULSE 54
[2024-02-29 09:19] VITALS: BP 120/57; PULSE 48
[2024-03-02 09:07] VITALS: BP 134/63; PULSE 54
[2024-03-07 10:09] VITALS: BP 125/66; PULSE 53
[2024-03-09 09:01] VITALS: BP 129/61; PULSE 53
[2024-03-14 09:11] VITALS: BP 136/59; PULSE 53
[2024-03-14 22:18] LABS: HCT 45.7 % (40.0-50.0); HGB 15.5 g/dL (13.5-17.5); MCH 32.6 pg (27.0-33.0); MCHC 33.9 % (32.0-36.0); MCV 96 fL (80-95); MPV 10.3 fL (8.0-11.0); Platelet Count 214 10^3/uL (130-400); RBC 4.76 10^6/uL (4.36-5.78); RDW 13.7 % (11.8-14.1); RDW-SD 48.7 fL
[2024-03-14 22:39] LABS: ALT 37 U/L (16-63); AST 35 U/L (15-37); Albumin 4.3 g/dL (3.4-5.0); Alkaline Phosphatase 57 U/L (46-116); Anion Gap 10.2 mmol/L (3-11); BUN 20 mg/dL (7-18); Bilirubin, Total 0.54 mg/dL (0.2-1.0); CO2 27.8 mmol/L (21.0-32.0); CREATININE 1.2 mg/dL (0.70-1.30); Chloride 102 mmol/L (98-107); Estimated GFR 63.46 (mL/min/1.73m2); Glucose 113 mg/dL (74-106); Potassium 4.6 mmol/L (3.5-5.1); Sodium 140 mmol/L (136-145); Total Protein 8.1 g/dL (6.4-8.2)
[2024-03-14 22:55] LABS: COMMENT (LAB VIEW ONLY) 24.68 mg/dL; Microalb ug/mg Crea 39.3 ug/mg Cr
[2024-03-16 09:07] VITALS: BP 122/55; PULSE 49
== END 2024-03-18 23:59 | disposition home or self-care (01) ==
LOC: CR 09:01
PROVIDERS: Family Medicine; PCP Internal Medicine; Visit Provider Internal Medicine Cardiovascular Disease
DX: I25.810 Atherosclerosis of coronary artery bypass graft(s) without angina pectoris (principal); Z51.89 Encounter for other specified aftercare; Z95.5 Presence of coronary angioplasty implant and graft
CPT/HCPCS: 80053; 85027; 82043; 82570

== ENCOUNTER 2024-04-13 08:57 | Outpatient (RCR) | payer SELFPAY ==
[2024-03-19 00:24] VITALS: BP 123/62; PULSE 54
[2024-03-21 09:29] VITALS: BP 137/54; PULSE 56
[2024-03-23 09:11] VITALS: BP 123/55; PULSE 48; O2SAT 96
[2024-03-28 09:09] VITALS: BP 128/56; PULSE 49
[2024-03-30 09:20] VITALS: BP 126/59; PULSE 48
[2024-04-04 09:16] VITALS: BP 117/59; PULSE 48
[2024-04-06 09:21] VITALS: BP 121/54; PULSE 44
[2024-04-11 10:23] VITALS: BP 122/60; PULSE 46
[2024-04-13 14:37] VITALS: BP 124/54; PULSE 47
== END 2024-04-17 23:59 | disposition home or self-care (01) ==
LOC: CR 08:57
PROVIDERS: PCP Internal Medicine; Visit Provider Internal Medicine Cardiovascular Disease
DX: R69 Illness, unspecified (principal)

== ENCOUNTER 2024-05-18 09:01 | Outpatient (RCR) | payer MEDICARE, BC, SELFPAY ==
[2024-04-18 11:41] VITALS: BP 119/58; PULSE 44
[2024-04-20 09:00] VITALS: BP 116/62; PULSE 50; O2SAT 97
[2024-04-25 09:04] VITALS: BP 124/63; PULSE 47
[2024-04-27 09:28] VITALS: BP 129/72; PULSE 53
[2024-05-02 09:22] VITALS: BP 166/66; PULSE 47
[2024-05-04 08:59] VITALS: BP 117/57; PULSE 47; O2SAT 96
[2024-05-09 10:12] VITALS: BP 119/62; PULSE 45
[2024-05-16 09:04] VITALS: BP 138/61; PULSE 51
[2024-05-18 09:28] VITALS: BP 127/64; PULSE 51
== END 2024-05-18 23:59 | disposition home or self-care (01) ==
LOC: CR 09:01
PROVIDERS: PCP Internal Medicine; Visit Provider Internal Medicine Cardiovascular Disease
DX: I25.810 Atherosclerosis of coronary artery bypass graft(s) without angina pectoris (principal); Z95.5 Presence of coronary angioplasty implant and graft; Z51.89 Encounter for other specified aftercare
CPT/HCPCS: S9472

== ENCOUNTER 2024-06-13 09:17 | Outpatient (RCR) | payer SELFPAY ==
[2024-05-19 00:15] VITALS: BP 127/64; PULSE 51
[2024-05-25 09:17] VITALS: BP 126/56; PULSE 47
[2024-05-30 08:52] VITALS: BP 121/56; PULSE 53
[2024-06-01 09:00] VITALS: BP 125/62; PULSE 48
[2024-06-06 09:33] VITALS: BP 133/65; PULSE 51
[2024-06-08 09:00] VITALS: BP 127/62; PULSE 47; O2SAT 95
[2024-06-13 09:18] VITALS: BP 149/70; PULSE 55
== END 2024-06-17 23:59 | disposition home or self-care (01) ==
LOC: CR 09:17
PROVIDERS: PCP Internal Medicine; Visit Provider Internal Medicine Cardiovascular Disease
DX: R69 Illness, unspecified (principal)

== ENCOUNTER 2024-07-18 08:57 | Outpatient (RCR) | payer SELFPAY ==
[2024-06-18 00:06] VITALS: BP 127/64; PULSE 51
[2024-06-27 09:31] VITALS: BP 118/59; PULSE 42
[2024-06-29 12:32] VITALS: BP 120/54; PULSE 51
[2024-07-04 08:55] VITALS: BP 125/50; PULSE 52
[2024-07-06 09:39] VITALS: BP 118/54; PULSE 46
[2024-07-13 08:54] VITALS: BP 132/67; PULSE 51; O2SAT 97
[2024-07-18 09:24] VITALS: BP 124/65; PULSE 50
== END 2024-07-18 23:59 | disposition home or self-care (01) ==
LOC: CR 08:57
PROVIDERS: PCP Internal Medicine; Visit Provider Internal Medicine Cardiovascular Disease
DX: R69 Illness, unspecified (principal)

== ENCOUNTER 2024-08-17 08:56 | Outpatient (RCR) | payer SELFPAY ==
[2024-07-19 00:20] VITALS: BP 127/64; PULSE 51
[2024-07-20 09:03] VITALS: BP 127/61; PULSE 50
[2024-07-25 09:04] VITALS: BP 121/59; PULSE 45
[2024-07-27 10:43] VITALS: BP 136/60; PULSE 53
[2024-08-01 09:17] VITALS: BP 146/65; PULSE 50
[2024-08-08 09:49] VITALS: BP 148/66; PULSE 53
[2024-08-10 09:07] VITALS: BP 140/59; PULSE 53
[2024-08-15 09:15] VITALS: BP 129/59; PULSE 51
[2024-08-17 09:07] VITALS: BP 116/54; PULSE 48; O2SAT 97
== END 2024-08-18 23:59 | disposition home or self-care (01) ==
LOC: CR 08:56
PROVIDERS: PCP Internal Medicine; Visit Provider Internal Medicine Cardiovascular Disease
DX: R69 Illness, unspecified (principal)

== ENCOUNTER 2024-09-14 09:14 | Outpatient (RCR) | payer SELFPAY ==
[2024-08-19 00:19] VITALS: BP 127/64; PULSE 51
[2024-08-24 08:58] VITALS: BP 123/59; PULSE 51
[2024-08-29 09:25] VITALS: BP 132/66; PULSE 57
[2024-08-31 09:08] VITALS: BP 125/53; PULSE 52; O2SAT 97
[2024-09-07 09:03] VITALS: BP 119/59; PULSE 54
[2024-09-12 09:42] VITALS: BP 131/63; PULSE 51
[2024-09-14 09:16] VITALS: BP 129/59; PULSE 43
== END 2024-09-15 23:59 | disposition home or self-care (01) ==
LOC: CR 09:14
PROVIDERS: PCP Internal Medicine; Visit Provider Internal Medicine Cardiovascular Disease
DX: R69 Illness, unspecified (principal)

== ENCOUNTER 2024-10-10 09:08 | Outpatient (RCR) | payer SELFPAY ==
[2024-09-16 00:18] VITALS: BP 127/64; PULSE 51
[2024-09-19 09:07] VITALS: BP 138/68; PULSE 55
[2024-09-21 09:13] VITALS: BP 122/56; PULSE 59
[2024-09-26 09:34] VITALS: BP 134/56; PULSE 50
[2024-09-28 09:03] VITALS: BP 136/62; PULSE 55; O2SAT 94
[2024-10-03 09:31] VITALS: BP 135/62; PULSE 49
[2024-10-05 09:23] VITALS: BP 140/80; PULSE 56
[2024-10-10 09:03] VITALS: BP 135/60; PULSE 51
== END 2024-10-16 23:59 | disposition home or self-care (01) ==
LOC: CR 09:08
PROVIDERS: PCP Internal Medicine; Visit Provider Internal Medicine Cardiovascular Disease
DX: R69 Illness, unspecified (principal)

== ENCOUNTER 2024-10-12 06:47 | Observation (INO) | payer MEDICARE, BC, SELFPAY ==
[2024-10-12] VITALS (33 sets, daily range): BP systolic 110–168; BP diastolic 47–74; PULSE 53–92; RESP 16–20; TEMP 36.4–37; O2SAT 91–97
--- NOTE | 2024-10-12 07:00 | DI.CT_ITS ---
Exam(s) CT ABDOMEN PELVIS W EXAM: CT ABDOMEN PELVIS W CLINICAL HISTORY: Abdominal pain diarrhea. TECHNIQUE: Imaging Protocol: Axial computed tomography images with coronal and sagittal reformatted images were created and reviewed CONTRAST MATERIAL: Intravenous: Omnipaque-350 75cc Oral: None COMPARISON: No exams were available for comparison FINDINGS: VISUALIZED LUNG BASES: There is patchy infiltrate in the visualized right lower lobe and right middle lobe. No pleural effusion. Visualized left lung bases clear. Moderate size height hernia noted.. ABDOMEN: There is a tiny amount of perihepatic ascites. LIVER: There are no focal hepatic lesions evident. No dilated intrahepatic ducts. GALLBLADDER/BILIARY: No obvious gallbladder pathology. CBD is not dilated. PANCREAS: No evidence of pancreatic mass nor dilatation of the pancreatic duct. SPLEEN: Spleen is not enlarged. No obvious intrasplenic lesions. Splenic and portal veins are paten t. ADRENALS: There are no significant adrenal masses. KIDNEYS:There are multiple small benign cysts in both kidneys measuring up to 2 cm, these benign cyst s not requiring further imaging evaluation. No solid renal masses. No calculi nor hydronephrosis.. ABDOMINAL AORTA: Abdominal aorta is calcified as are the common iliac arteries. 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 The maximum dimensi on of the aorta at this level is 3 cm. This is adjacent to an area of heavily calcified plaque. The re is possibly that this may represent a penetrating abdominal aortic ulcer at this level. Incidenta lly noted is a retroaortic left renal vein which is patent. LYMPH NODES:There is no retroperitoneal nor paraaortic adenopathy. ABDOMINAL WALL: There are large bilateral inguinal hernias which extend down to the scrotal sac bilat erally and contain bowel loops. There is a transition point in the left inguinal hernia whereby smal l-bowel loops above this level are significantly dilated to 3.5 cm, consistent with small bowel obstr uction. All the small bowel loops in the and large right inguinal hernia appear partially collapsed. GI: Small bowel obstruction as above. There is diverticulosis of the descending-left colon. Signifi cant amount of the sigmoid colon is in the large left inguinal hernia. There also dilated small jeremías l loops in the large left inguinal hernia. There is some streaking in the mesentery and in the anterior abdomen adjacent to some of the dilated small bowel loops. There is also some fluid in the large left inguinal hernia. PELVIS: GI: No evidence of appendicitis. LYMPH NODES: There is no intrapelvic nor inguinal adenopathy. REPRODUCTIVE: Prostate size normal. Seminal vesicles unremarkable. URINARY BLADDER: No calculi nor obvious masses evident OSSEOUS: No fractures and no significant osseous lesions. Moderate disc space narrowing at L5-S1 level. No listhesis. IMPRESSION: 1. The main acute finding here is at small bowel obstruction and there is a small amount of ascites r elated to this obstruction. Transition point appears to be within the large left inguinal hernia and there is also some fluid in the left inguinal hernia sac. There is also a large right inguinal brenda ia which contains small bowel loops. Surgical consultation recommended. 2. Moderate-large hiatal hernia noted. Appearance reflects probable prior fundoplication surgery. 3. There is patchy infiltrate throughout the visualized right lung base involving both the right lowe r lobe and right middle lobe. There is no pleural effusion. 4. Abdominal aorta is calcified and atherosclerotic and there is a saccular aneurysm as described abo ve at L3 level, this on the anterior wall of the abdominal aorta. There is also significant calcific ation/plaque in the iliac arteries. Findings assessed by phone with ER physician 10/12/2024 at 9 a.m. RADIATION DOSE DELIVERED: 477.99mGy.cm Total DLP DATA REPOSITORY: All CT scans at this facility are submitted to the National Radiology Data Registry (NRDR) Dose Index Registry (DIR) with the [employer] (ACR). RADIATION OPTIMIZATION: All CT scans at this facility use at least one of these dose optimization te chniques: automated exposure control; mA and/or kV adjustment per patient size (includes targeted exa ms where dose is matched to clinical indication); or iterative reconstruction.
--- NOTE | 2024-10-12 07:03 | W.ED.GENAD ---
Discharge Plan Disposition Patient Disposition: Admit to [facility] Discharge Details Clinical Impression: Aspiration pneumonia of right lung, SBO (small bowel obstruction) Admit Date/Time: 10/12/24 09:35 Admit Provider: Moy Berry Attending Provider: Moy Berry Primary Care Provider: Edd Garner ED Provider: Christofer Torres Discharge Data Discharge Date/Time-TO BE ENTERED AT DEPARTURE: 10/12/24 11:40 HPI General Date/Time Provider Initiated Documentation: 10/12/24 06:57. HPI Narrative: MDM This is an overall very well-appearing normothermic and not tachycardic 74-year-old male with lower abdominal pain along with decreased stool concerning for the possibility of early SBO versus ileus for which patient will undergo CT scan. I considered sepsis however the patient denies fevers and has reassuring vital signs did not treat with broad-spectrum antibiotics nor check a lactate. No pain or proportion to suggest necrotizing soft tissue infection. No chest pain to suggest ACS. No recent antibiotic use nor fevers to suggest benefit from C. difficile testing. Diverticulitis is on the differential given left lower quadrant tenderness. In the setting of right lower quadrant tenderness appendicitis is also possible. No dysuria or frequency so my suspicion is low for UTI. I considered aortic dissection however patient is not hypotensive nor tobacco user so I do not feel that he requires an angiogram of his abdomen. No rash to his abdomen to suggest zoster. No history of ureterolithiasis so my suspicion is low for hydronephrosis. Will treat with ondansetron for nausea and 1 mg midazolam as he reports anxiety with imaging. Patient has no signs of incarcerated hernia on exam. 9 AM CBC shows leukocytosis no anemia. No thrombocytopenia. No PALMIRA. Reassuring electrolytes. On CT scan patient has an SBO with a transition point in his large left inguinal hernia. There is also noted to be a patchy infiltrate throughout the visualized right lung but no pleural effusion. Given history of emesis we will treat with ampicillin-sulbactam for pneumonia and obtain a chest x-ray. I did not draw blood cultures nor check a lactate as patient was not septic. Will touch base with general surgery but anticipate hospitalist admission. I met with the patient and his to update them on the plan of care. He has not been nauseous and has no pain at the moment. Will keep patient NPO on maintenance fluids. 9:30 AM I spoke with Dr. Berry who graciously agreed to accept the patient for hospitalization. HPI This is a 74-year-old male with history of coronary artery disease arriving to the emergency department with his via private vehicle in the setting of abdominal pain. Patient notes that 5 days ago he had some diarrhea. He took several doses of Imodium and his diarrhea resolved but then he began having lower abdominal pain. He reports his last bowel movement was 3 days ago though he did have a small bowel movement yesterday. He has been nauseous and vomiting. He denies hematemesis. He denies dysuria frequency and UTI. Past surgical history his abdomen is significant for remote Scarlet fundoplication. He denies fevers cough shortness of breath. He has no sick contacts. He has had no recent antibiotic use. He last had a colonoscopy in 2016 which was reportedly reassuring. He denies routine tobacco. He drinks 1 small drink per night and denies illicit drug use. He has not taken any falls. He has not noticed any rash to his abdomen. Exam General: Well-appearing in no acute distress speaking in complete sentences. Head: Normocephalic, atraumatic. Eye: Extraocular eye movements intact. No conjunctival injection. No scleral icterus. Ear, nose, mouth, throat: Grossly normal inspection. Normal voice, handling secretions normally. Neck: Trachea midline. Cardiovascular: Well-perfused distal extremities. Regular rate and rhythm. Respiratory: Nonlabored respiration. Clear lungs bilaterally. Gastrointestinal: Moderately distended abdomen. Soft. Bilateral lower quadrant tenderness with bilateral large hernias. No rebound. No guarding. No skin changes. Musculoskeletal: No edema. Moving all 4 extremities spontaneously. Skin: Normal for age and race, grossly normal temperature and turgor. No acute rash. Neurologic: Alert and appropriate, no apparent acute deficits. Psychiatric: Mood and manner are appropriate. Grooming and personal hygiene are appropriate. Related Data Home Medications ?Medication ?Instructions ?Recorded ?Confirmed clopidogrel 75 mg tablet 75 mg PO DAILY 01/13/16 10/12/24 allopurinol 100 mg tablet 100 mg PO DAILY 12/19/20 10/12/24 lansoprazole 30 mg delayed See Rx Instructions .Route .COMPLEX 12/19/20 10/12/24 release,disintegrating tablet metoprolol succinate 50 mg 50 mg PO DAILY 12/19/20 10/12/24 tablet,extended release 24 hr nitroglycerin 0.4 mg sublingual 0.4 mg sublingual Q5M PRN 12/19/20 10/12/24 tablet aspirin 81 mg capsule 81 mg PO DAILY 10/12/24 10/12/24 furosemide 20 mg tablet 20 mg PO DAILY 10/12/24 10/12/24 lisinopril 5 mg tablet 5 mg PO DAILY 10/12/24 10/12/24 rosuvastatin 20 mg tablet 20 mg PO DAILY 10/12/24 10/12/24 Allergies Allergy/AdvReac Type Severity Reaction Status Date / Time No Known Allergies Allergy Unverified 10/12/24 06:57 General Stated Complaint: Abd Prob ZORAIDA: 3 Course Vital Signs Vital signs: Vital Signs Temperature 36.4 C 10/12/24 06:53 Pulse 57 L 10/12/24 06:53 Respiratory Rate 18 10/12/24 06:53 Blood Pressure 168/74 H 10/12/24 06:53 Pulse Oximetry 96 10/12/24 06:53 Temperature 36.4 C 10/12/24 06:53 Temperature Source Oral 10/12/24 06:53 Pulse 57 L 10/12/24 06:53 Respiratory Rate 18 10/12/24 06:53 Blood Pressure 168/74 H 10/12/24 06:53 Blood Pressure Position Sitting 10/12/24 06:53 Pulse Oximetry 96 10/12/24 06:53 Oxygen Delivery Method Room Air 10/12/24 06:53 Oxygen Flow Rate 0 10/12/24 06:53 Pain Level 5 10/12/24 06:59 Medical Decision Making Quality:SDOH Health Related Social Needs: No Data to Display PFSH All Active Problems (Updated 10/12/24 @ 13:42 by Moy Berry MD) Bilateral inguinal hernia (Acute) SBO (small bowel obstruction) (Acute) Aspiration pneumonia of right lung (Acute) Fecal occult blood test positive (Acute) Surgical History Coronary Stent Colonoscopy - MAC (02/28/16) Social History Smoking/Tobacco Use Status: Former Tobacco Use Quit Date: 06/14/11 Smoking risk assessment performed?: Yes Alcohol Intake: current Alcohol Intake frequency: 0-2 drinks per day Drug use: Never Substance use type: does not use Housing: house Do you feel safe at home: Yes Do you feel safe in your relationship?: Yes PAWSS Have you Been Recently Intoxicated or Drunk Within the Last 30 days?: No Have you Ever Experienced Previous Episodes of Alcohol Withdrawal?: No Have you ever Experienced Withdrawal Seizures?: No Have you ever Experienced Delirium Tremens(DT)s?: No Have you ever undergone Alcohol Rehabilitation Treatment (i.e, inpt ot outpatient treatment programs)?: No Have you ever Experienced Blackouts?: No Have you ever Combined Alcohol with other Downers within the last 90 days?: No Have you ever Combined Alcohol with any other Substance of Abuse during the last 90 days?: No Result: 0
[2024-10-12 07:44] LABS: Abs Immature Grans 0.04 10^3/uL (0.0-0.06); Absolute Basophil Count 0.05 10^3/uL (0.0-0.2); Absolute Lymphocyte Count 1.39 10^3/uL (1.2-3.4); Absolute Monocyte Count 0.93 10^3/uL (0.1-0.8); Absolute Neutrophil Count 10.43 10^3/uL (1.2-6.7); Basophils % 0.4 %; Eosinophils % 0.2 %; HCT 51.6 % (40.0-50.0); Immature Grans % 0.3 %; Lymphocytes % 10.8 %; MCH 32.4 pg (27.0-33.0); MCHC 32.9 % (32.0-36.0); MCV 99 fL (80-95); MPV 10.2 fL (8.0-11.0); Monocytes % 7.2 %; Neutrophils % 81.1 %; Platelet Count 207 10^3/uL (130-400); RBC 5.24 10^6/uL (4.36-5.78); RDW 14.5 % (11.8-14.1); RDW-SD 52.2 fL; WBC 12.86 10^3/uL (4.4-10.8)
[2024-10-12 07:48] LABS: Absolute Eosinophil Count 0.03 10^3/uL (0.0-0.7)
[2024-10-12] MEDS: Ondansetron 4 MG/2 ML VIAL IVP (07:58)
[2024-10-12] MEDS: Normal Saline 500 ML 1000 ML IV (07:58)
[2024-10-12 08:08] LABS: ALT 32 U/L (16-63); AST 27 U/L (15-37); Albumin 4.3 g/dL (3.4-5.0); Alkaline Phosphatase 60 U/L (46-116); Anion Gap 10.3 mmol/L (3-11); BUN 16 mg/dL (7-18); Bilirubin, Total 0.8 mg/dL (0.2-1.0); CO2 32.7 mmol/L (21.0-32.0); CREATININE 1.3 mg/dL (0.70-1.30); Calcium 10.2 mg/dL (8.5-10.1); Chloride 101 mmol/L (98-107); Estimated GFR 57.65 (mL/min/1.73m2); Glucose 166 mg/dL (74-106); Lipase 95 U/L (<78); Potassium 4.3 mmol/L (3.5-5.1); Sodium 144 mmol/L (136-145); Total Protein 8.8 g/dL (6.4-8.2)
[2024-10-12] MEDS: Midazolam 2 MG/2 ML VIAL 1 MG IVP (08:08)
[2024-10-12] MEDS: Normal Saline - Diluent 50 ML VIAL IJ (08:30)
[2024-10-12] MEDS: Omnipaque 350 MG/ML 100 ML BTL IJ (08:30)
--- NOTE | 2024-10-12 09:00 | DI.RAD_ITS ---
Exam(s) XR CHEST 2V PA LATERAL EXAM: XR CHEST 2V PA LATERAL CLINICAL HISTORY: Right lung infiltrate. TECHNIQUE: 2D digital imaging was performed. COMPARISON: CR,XR XR CHEST 2V PA LATERAL from 10/31/2019 FINDINGS: 2 views: Heart size is upper normal. The mediastinum is not widened. There is some infiltrate in the right middle lobe. Possibly also right lower lobe. Left lung is sam ar. There are no pleural effusions. IMPRESSION: Lower right lung infiltrate. Left lung clear. There are no pleural effusions. DATA REPOSITORY: RADIATION DOSE DELIVERED:
--- NOTE | 2024-10-12 09:12 | W.SURGCON ---
Date of service: 10/12/24 Time of Service: 09:12 Assessment and Plan Assessment and plan (1) Bilateral inguinal hernia: Status: Acute Assessment and plan: 74-year-old man with bilateral inguinal hernias. They are certainly chronically incarcerated and he has evidence of a small bowel obstruction in the left?sided [address] scan. He endorses significant clinical improvement in his overall feeling. His abdominal girth is less distended and he feels his hernias and says they feel normal and not like they felt yesterday. I do think I was able to reduce the bowel such that any obstructive area is probably relieved, but it did spontaneously incarcerate again as soon as I reduced it. He is going to need an operative intervention on these hernias but I think it would be ideal to be done when he is NOT on Plavix if at all possible. He will have a significant amount of space after hernia repair which will likely become a seroma on both sides after hernia surgery and we want to avoid that being a hematoma. We discussed admitting him to the hospital for observation and making sure that the obstruction does not come back and stays relieved. As long as is the case he can be discharged home tomorrow. He is to stay off of Plavix and we should plan for surgical repair of the hernias in the next couple weeks to prevent a recurrence of the bowel obstruction. Overall plan: Bedrest - bathroom privileges only Ice on hernias/groins bilateral N.p.o. 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 His only surgical history is significant for hiatal hernia repair and Scarlet fundoplication a long time ago but that has since recurred. He occasionally will notice that his groins would be very swollen and he has to push them back in at night but when he is up during the daytime they are always out. Yesterday he developed some swelling in his abdomen. All last night he was vomiting and had pretty significant abdominal discomfort and says that his hernia, especially on the left, was very tight. Because he was feeling so ill, he came to the hospital to be assessed. His says this is extremely unusual for him. At the bedside, the patient endorses feeling significant improvement. He endorses that he feels basically back to himself. He has multiple cardiac stents and takes aspirin and Plavix. There is a question of pneumonia on a chest x-ray. He does not have a cough. PFSH All Active Problems (Updated 10/12/24 @ 13:42 by Moy Berry MD) Bilateral inguinal hernia (Acute) SBO (small bowel obstruction) (Acute) Aspiration pneumonia of right lung (Acute) Fecal occult blood test positive (Acute) Surgical History Coronary Stent Colonoscopy - MAC (02/28/16) Social History Smoking/Tobacco Use Status: Former Tobacco Use Quit Date: 06/14/11 Smoking risk assessment performed?: Yes Alcohol Intake: current Alcohol Intake frequency: 0-2 drinks per day Drug use: Never Substance use type: does not use Do you feel safe at home: Yes Do you feel safe in your relationship?: Yes Exam Narrative Exam Narrative: Gen: Non-toxic, comfortable and interactive. Neuro: Alert and oriented x3 Psych: Good mood and affect. Good insight and understanding into condition. Chest: Non-labored breathing, no wheezing, no visible shortness of breath. Heart: Regular Abdomen: Soft, minimally distended, no tenderness. Groin: The bilateral groins have distended, palpable bowel within them. They are very soft. Grossly non- tender. I am able to reduce the bowel from both sides. Unfortunately, as soon as I reduce the hernias, they do recur almost instantaneously. Results Last Vital Signs Temp 97.6 F 10/12/24 07:03 Pulse 64 10/12/24 08:35 Resp 17 10/12/24 08:35 BP 149/68 H 10/12/24 08:35 Pulse Ox 91 L 10/12/24 08:35 Labs 10/12/24 07:30 10/12/24 07:30 Labs: Laboratory Results - last 24 hr 10/12/24 07:30 WBC 12.86 H RBC 5.24 Hgb 17.0 Hct 51.6 H MCV 99 H MCH 32.4 MCHC 32.9 RDW 14.5 H Plt Count 207 MPV 10.2 Immature Gran % 0.3 Neutrophils % 81.1 Lymphocytes % 10.8 Monocytes % 7.2 Eosinophils % 0.2 Basophils % 0.4 Nucleated RBC % 0.0 Absolute Neutrophils 10.43 H Absolute Lymphocytes 1.39 Absolute Monocytes 0.93 H Absolute Eosinophils 0.03 Absolute Basophils 0.05 Sodium 144 Potassium 4.3 Chloride 101 Carbon Dioxide 32.7 H Anion Gap 10.3 BUN 16 Creatinine 1.3 Est GFR (CKD-EPI 2020) 57.65 Glucose 166 H Calcium 10.2 H Total Bilirubin 0.8 AST 27 ALT 32 Alkaline Phosphatase 60 Total Protein 8.8 H Albumin 4.3 Lipase 95 H
[2024-10-12] MEDS: AMPICILLIN/SULBACTAM 3 GM in Normal Saline 100 ML IVPB (09:55)
[2024-10-12] MEDS: Normal Saline 1,000 ML 125 ML IV (09:55)
[2024-10-12] MEDS: ACETAMINOPHEN 1,000 MG/100 ML BAG 400 MG IVPB ×3 (10:16→22:04)
[2024-10-12] MEDS: Metoprolol 5 MG/5 ML VIAL IVP ×3 (10:33→22:05)
--- NOTE | 2024-10-12 11:58 | W.PC.ACHO ---
Registration Status: Primary Language: Preferred Language: ED Information & Data Chief Complaint Abd Prob 10/12/24 07:24 Triage Note Pt reports that he woke up 10/12/24 06:53 last night with lower abdominal pain and the inability to move his bowels - was having diarrhea earlier in the week and started taking antidiarrheals Wednesday and Wednesday and believes they might have backed him up. (Last Reviewed 10/31/19 @ 20:28 by KENDRA Larson) Coronary Stent Colonoscopy - MAC (02/28/16) Most Recent Vital Signs Temperature 37.0 C 10/12/24 11:29 Temperature Source Oral 10/12/24 07:03 Pulse 57 L 10/12/24 11:32 Pulse 58 L 10/12/24 11:32 Respiratory Rate 19 10/12/24 11:32 Blood Pressure 134/64 10/12/24 11:32 Blood Pressure Mean 80 10/12/24 11:32 Blood Pressure Position Sitting 10/12/24 07:03 Pulse Oximetry 94 10/12/24 11:29 Oxygen Delivery Method Room Air 10/12/24 10:14 Oxygen Flow Rate 0 10/12/24 10:14 Pain Level 3 10/12/24 11:29 Allergies No Known Allergies Allergy (Unverified 10/12/24 06:57) Precautions Isolation Standard precaution 10/12/24 06:56 Active Medications Generic Name Dose Route Start Last Admin Trade Name Freq PRN Reason Stop Dose Admin Sodium Chloride 1,000 mls @ 125 mls/hr 10/12/24 09:15 10/12/24 09:55 Saline 1000ml Bag IV 10/12/24 21:14 125 mls/hr INFUSION DYLON Administration Acetaminophen 1,000 mg in 100 mls @ 400 mls/hr 10/12/24 10:00 10/12/24 10:31 Ofirmev IVPB Infused Q6H DYLON Infusion Iohexol 100 ml 10/12/24 08:30 10/12/24 08:30 Omnipaque 350 Mg/Ml 100 Ml Btl IJ 11/11/24 23:59 100 ml DIRECTED DYLON Administration Metoprolol Tartrate 5 mg 10/12/24 10:00 10/12/24 10:33 Metoprolol 5 Mg/5 Ml Vial IVP 5 mg Q6H DYLON Administration Sodium Chloride 50 ml 10/12/24 08:30 10/12/24 08:30 Normal Saline - Diluent 50 Ml Vial IJ 50 ml .FOR DI USE DYLON Administration IV IV Catheter Type [Right Upper Peripheral IV arm] IV Catheter Gauge [Right Upper 20 arm] Diet Orders Category Date Time Status npo [Nothing Per Oral] [DIET] Nutrition 10/12/24 Lunch Active npo [Nothing Per Oral] [DIET] Nutrition 10/12/24 Lunch Active Diagnostics 10/12/24 Range/Units 07:30 WBC 12.86 H (4.4-10.8) 10^3/uL RBC 5.24 (4.36-5.78) 10^6/uL Hgb 17.0 (13.5-17.5) g/dL Hct 51.6 H (40.0-50.0) % MCV 99 H (80-95) fL MCH 32.4 (27.0-33.0) pg MCHC 32.9 (32.0-36.0) % RDW 14.5 H (11.8-14.1) % Plt Count 207 (130-400) 10^3/uL MPV 10.2 (8.0-11.0) fL Immature Gran % 0.3 % Neutrophils % 81.1 % Lymphocytes % 10.8 % Monocytes % 7.2 % Eosinophils % 0.2 % Basophils % 0.4 % Nucleated RBC % 0.0 (0.0-0.3) % Absolute Neutrophils 10.43 H (1.2-6.7) 10^3/uL Absolute Lymphocytes 1.39 (1.2-3.4) 10^3/uL Absolute Monocytes 0.93 H (0.1-0.8) 10^3/uL Absolute Eosinophils 0.03 (0.0-0.7) 10^3/uL Absolute Basophils 0.05 (0.0-0.2) 10^3/uL Sodium 144 (136-145) mmol/L Potassium 4.3 (3.5-5.1) mmol/L Chloride 101 (98-107) mmol/L Carbon Dioxide 32.7 H (21.0-32.0) mmol/L Anion Gap 10.3 (3-11) mmol/L BUN 16 (7-18) mg/dL Creatinine 1.3 (0.70-1.30) mg/dL Est GFR (CKD-EPI 2020) 57.65 (mL/min/1.73m2) Glucose 166 H (74-106) mg/dL Calcium 10.2 H (8.5-10.1) mg/dL Total Bilirubin 0.8 (0.2-1.0) mg/dL AST 27 (15-37) U/L ALT 32 (16-63) U/L Alkaline Phosphatase 60 (46-116) U/L Total Protein 8.8 H (6.4-8.2) g/dL Albumin 4.3 (3.4-5.0) g/dL Lipase 95 H (<78) U/L Intake and Output - 24 Hour Total 10/12/24 06:47 thru 10/12/24 10:31 Intake Total 710 Balance 710 Weight 77.111 kg Intake: IV 710 Falls Risk Assessment History of Falls No History 10/12/24 07:40 Contributing Factors No Factors 10/12/24 07:40 Ambulatory Aids Independent 10/12/24 07:40 Tubes/Lines W/no contributing factors 10/12/24 07:40 Gait Evaluation No gait disturbance 10/12/24 07:40 Cognition No cognitive impairment 10/12/24 07:40 Fall Total Score 10 10/12/24 07:40 Level of Risk Standard/Low Risk 10/12/24 07:40 Problems (Last Reviewed 10/31/19 @ 20:28 by KENDRA Larson) SBO (small bowel obstruction) (Acute) Aspiration pneumonia of right lung (Acute) v v v v v v v v v Sending and/or Receiving Nurses: Please use comment section below to note any information pertinent to the patient hand-off not included above. Information / Comments: Patient arrived via private car for lower abdominal pain. Has been NPO since admission to ED. Neuro: AxOx4 Cardiac: Metoprolol IV administered Resp: Clear 94% RA GI: Distended, soft, took anti-diarrehals a few days ago and thinks he's backed up US Guided IV Access LUE ED Meds Administered: Zofran, Unasyn x 3, Midazolam, IV Bolus 500mL, currently running NaCl at 125mL/hr Report received from:OLIVER Oconnell (ED)
--- NOTE | 2024-10-12 13:59 | PHA.REVIEW2 ---
Pharmacy Admission Review Admission Clinical Review Admission Pharmacy Review: Bilateral inguinal hernia (Acute) SBO (small bowel obstruction) (Acute) Aspiration pneumonia of right lung (Acute) No Known Allergies Allergy (Unverified 10/12/24 06:57) Resuscitation Status Full Code Height 5 ft 5 in Weight 77.111 kg Comments Comments/Follow Ups: Per surgery consult: admitting for observation to make sure obstruction does not come back then will discharge tomorrow Pharmacy Admission Review Renal Dosing Renal Dosing: BUN 16 mg/dL (7-18) 10/12/24 07:30 Creatinine 1.3 mg/dL (0.70-1.30) 10/12/24 07:30 Medications needing adjustments: Reviewed (CrCl 47.77 mL/min) List of meds needing interventions: Current medications are okay Anticoagulation Anticoagulation: Hgb 17.0 g/dL (13.5-17.5) 10/12/24 07:30 Hct 51.6 % (40.0-50.0) H 10/12/24 07:30 Plt Count 207 10^3/uL (130-400) 10/12/24 07:30 Creatinine 1.3 mg/dL (0.70-1.30) 10/12/24 07:30 DVT Prophylaxis: Reviewed (SCDs) Relevant Labs Relevant Labs: Sodium 144 mmol/L (136-145) 10/12/24 07:30 Potassium 4.3 mmol/L (3.5-5.1) 10/12/24 07:30 Chloride 101 mmol/L (98-107) 10/12/24 07:30 Electrolytes, C-Reactive P, ESR: Reviewed (WBC 12.86) Cardiac Review Cardiac Review: Blood Pressure 125/52 1340 Blood Pressure 134/64 1132 Blood Pressure 127/47 1129 Blood Pressure 140/52 1117 Blood Pressure 137/53 1107 Blood Pressure 127/47 1046 Blood Pressure 140/55 1039 Blood Pressure 140/55 1033 Blood Pressure 140/55 1031 Blood Pressure 163/60 1016 BP, HR, EF%: Reviewed (HR WNL) QTc Review QTc: Reviewed (No EKG on file) IV to PO Switch IV Medications: Reviewed (APAP, metoprolol, ondansetron and Zosyn - currently NPO) Home Meds Home Med List reviewed: Reviewed Relevent Home Meds Not ordered & why?: allopurinol, aspirin, clopidogrel (on hold per surgery consult), furosemide, lansoprazole, lisinopril, nitroglycerin (PRN), rosuvastatin NPO at this time, reach out to provider if not discharged tomorrow and can take PO Current Meds Current Medication Order Review: Reviewed Pharmacy Antibiotic Review Relevant Labs: WBC 12.86 10^3/uL (4.4-10.8) H 10/12/24 07:30 Temperature 37.0 C Temperature 37.0 C Temperature 36.4 C Temperature 36.4 C Pharmacy Antibiotic Activity: C/S review and Reviewed, no change Comments: Patient is on Zosyn 3.375g q8h, day 1, for SBO and hernia. Comments Comments/Follow Ups: Per surgery consult: admitting for observation to make sure obstruction does not come back then will discharge tomorrow
[2024-10-12] MEDS: Lactated Ringers 1,000 ML 100 ML IV (14:08)
[2024-10-12] MEDS: PIPERACILLIN/TAZO 3.375 GM in Normal Saline 50 ML IVPB (18:32)
[2024-10-13] MEDS: PIPERACILLIN/TAZO 3.375 GM in Normal Saline 50 ML IVPB ×2 (02:19→10:58)
[2024-10-13 04:15] VITALS: BP 119/68; PULSE 79; RESP 19; TEMP 37.1; O2SAT 93
[2024-10-13] MEDS: ACETAMINOPHEN 1,000 MG/100 ML BAG 400 MG IVPB ×2 (04:45→10:57)
[2024-10-13 06:39] LABS: Abs Immature Grans 0.02 10^3/uL (0.0-0.06); Absolute Basophil Count 0.02 10^3/uL (0.0-0.2); Absolute Eosinophil Count 0.12 10^3/uL (0.0-0.7); Absolute Lymphocyte Count 1.35 10^3/uL (1.2-3.4); Absolute Monocyte Count 0.77 10^3/uL (0.1-0.8); Absolute Neutrophil Count 6.24 10^3/uL (1.2-6.7); Basophils % 0.2 %; Eosinophils % 1.4 %; HCT 40.2 % (40.0-50.0); HGB 12.8 g/dL (13.5-17.5); Immature Grans % 0.2 %; Lymphocytes % 15.8 %; MCH 31.9 pg (27.0-33.0); MCHC 31.8 % (32.0-36.0); MCV 100 fL (80-95); MPV 10.3 fL (8.0-11.0); Neutrophils % 73.4 %; Platelet Count 151 10^3/uL (130-400); RBC 4.01 10^6/uL (4.36-5.78); RDW 14.7 % (11.8-14.1); RDW-SD 53.3 fL; WBC 8.52 10^3/uL (4.4-10.8)
[2024-10-13 06:58] LABS: Anion Gap 8.8 mmol/L (3-11); BUN 19 mg/dL (7-18); CO2 28.2 mmol/L (21.0-32.0); CREATININE 1.2 mg/dL (0.70-1.30); Calcium 8.8 mg/dL (8.5-10.1); Chloride 109 mmol/L (98-107); Estimated GFR 63.46 (mL/min/1.73m2); Glucose 122 mg/dL (74-106); Potassium 4.5 mmol/L (3.5-5.1); Sodium 146 mmol/L (136-145)
--- NOTE | 2024-10-13 07:22 | DI.RAD_ITS ---
Exam(s) XR ABD FLAT UPRIGHT PA CHEST EXAM: XR ABD FLAT UPRIGHT PA CHEST CLINICAL HISTORY: assess for contrast in colon and/or rectum. TECHNIQUE: 2D digital imaging was performed. COMPARISON: CT CT ABDOMEN PELVIS W from 10/12/2024 CR XR CHEST 2V PA LATERAL from 10/12/2024 FINDINGS: Chest frontal view: Heart size upper normal. Left lung is clear. Mild increased markings in the rig ht lower lobe again noted, most probably corresponding to the patchy infiltrates which are evident o n the uppermost images of the recent abdominal CT scan of 10/12/2024. There are no pleural effusions . Abdomen-two views: Supine and upright views of the abdomen again reveal numerous bowel loops in both huge inguinal hernias (which extend down to the scrotum bilaterally). There are few air-filled bowel loops but no distinct obvious obstruction pattern at this time and the re is no free air. Contrast in the bladder is from the recent CT scan. The hiatal hernia seen on th e recent CT scan is less evident on plain films. Apparently this patient has had a prior fundoplicat ion procedure. IMPRESSION: Large bilateral inguinal hernias both containing bowel loops. No obvious obstruction pattern at this time. Correlation with clinical findings recommended to determine if repeat CT scan would be helpfu l for more accurate comparison to the abnormal CT scan of 10/12/2024. DATA REPOSITORY: RADIATION DOSE DELIVERED:
[2024-10-13 08:07] VITALS: BP 112/65; PULSE 73; RESP 14; TEMP 37; O2SAT 96
--- NOTE | 2024-10-13 10:08 | PDOC.CMIN ---
Date of service: 10/13/24 Time of Service: 10:08 Care Management Initial Assmt Initial Assessment Reason for Hospitalization: SBO Functional Status/Living Situation Patient Presentation: Marco was ambulating in his room when CM met with him and his Deepa Shultz. He appeared to be in good spirits and informed CM that he has been discharged. He stated he feels well and has a plan for surgery in the near future. Both Marco and Deepa reported that his care at [facility] has been wonderful. They shared that they found the staff very competent and caring and feel very fortunate to have [facility] available so close to home. Town of Residence: [place] Resides with: Spouse ( Deepa) Employment Status: Retired Instrumental Activities of Daily Living (ADLs): Independent Medications Medication Management: No Issues/Barriers identified Advance Directives Advance Directives: Do you have an Advance Directive: N 11/16/12 00:09 AD On File at [facility]: N 09/11/12 16:09 Date Asked 10/12/24 10/12/24 07:01 AD Date Reviewed COLST On File at [facility] COLST Date Scanned Code Status Resuscitation Status Full Code Insurance Coverage/Financial Issues Insurance: Medicare / Care Team Visit Care Team Role Provider Type Edd Garner MD Primary Care Provider [facility] STAFF PHYSICIAN Christofer Torres MD Emergency Provider [facility] STAFF PHYSICIAN Moy Berry MD Admit Provider [facility] STAFF PHYSICIAN Attending Provider Discharge Potential Discharge Needs: Surgical F/U Appt Anticipated Barriers to Discharge: None Identified Patient/Family Education Needs: Review discharge instructions, discuss Ask Me Three Transportation: Private vehicle Plan: Marco will be discharged home with no new services. He will follow up with his surgeon and plan of care and transport with family. Social Determinants of Health Screening Social Determinants of Health last assessed: 10/13/24 Will the Patient Participate in the Screening?: Yes Do you worry about having a steady place to live?: no Problems where you live: no known problems In the past 12 months, have you had to go without electric, gas, oil or water in your home?: no Have you or anyone in your house had to go without enough food to eat?: no Has lack of transportation kept you from medical appointments or from doing things needed for daily living?: no Has anyone in your life made you feel unsafe or unsupported?: no How hard is it for you to pay for the very basics like food, housing, medical care, and heating? Would you say it is:: Not hard at all Do you want help finding or keeping work or a job?: I do not need or want help If for any reason you need help with day-to-day activities such as bathing, preparing meals, shopping, managing finances, etc., do you get the help you need?: I don?t need any help How often do you feel lonely or isolated from those around you?: Never Do you speak a language other than Turkmen at home?: No Does the patient want assistance with any of the above?: No PFSH All Active Problems (Updated 10/13/24 @ 14:44 by Delmis James MD) Bilateral inguinal hernia with obstruction (Acute) SBO (small bowel obstruction) (Acute) Aspiration pneumonia of right lung (Acute) Fecal occult blood test positive (Acute) Medical History (Updated 10/13/24 @ 14:44 by Delmis James MD) Bilateral inguinal hernia Coronary artery disease Surgical History Coronary Stent Colonoscopy - MAC (02/28/16) Social History Smoking/Tobacco Use Status: Former Tobacco Use Quit Date: 06/14/11 Smoking risk assessment performed?: Yes Alcohol Intake: current Alcohol Intake frequency: 0-2 drinks per day Drug use: Never Substance use type: does not use Housing: house Do you feel safe at home: Yes Do you feel safe in your relationship?: Yes
[2024-10-13 10:50] VITALS: BP 118/49; PULSE 55; RESP 16; TEMP 37.1; O2SAT 97
[2024-10-13 10:58] VITALS: BP 118/49; PULSE 55
[2024-10-13] MEDS: Normal Saline Flush 10 ML SYR IVP (10:59)
--- NOTE | 2024-10-13 14:40 | DSE_ITS ---
Date of service: 10/13/24 Time of Service: 14:40 DS: Diagnosis Discharge Diagnosis (1) Bilateral inguinal hernia with obstruction: Status: Acute Asessment and Plan: This patient with large bilateral inguinal hiernia, was admitted with an obstructed inguinal hernia, probably in the left incarcerated inguinal hernia but the obstruction has been resolved. Patient has been counseled on signs and symptoms of recurrent obstruction. He has been instructed not to do any heavy lifting. He will hold his Plavix. He has an appointment on October 17 in the office to set up surgery. Discharge Plan Disposition Patient Disposition: Home Condition: Good Discharge Details Reason For Visit: sbo Admit Date/Time: 10/12/24 09:35 Admit Provider: Moy Berry Attending Provider: Moy Berry Primary Care Provider: Edd Garner Hospital Course Hospital Course: The patient was admitted with symptoms of bowel obstruction which resolved quickly. CT scan confirmed that there was a large amount of small intestine, bilateral in the hernias. The left inguinal hernia contains sigmoid colon as well. Overnight the patient did well, was passing flatus, had a regular meal tray which she tolerated well and desires discharge to home. Home Meds and New Rx's Prescriptions: Continued aspirin 81 mg capsule 81 mg PO DAILY furosemide 20 mg tablet 20 mg PO DAILY rosuvastatin 20 mg tablet 20 mg PO DAILY lisinopril 5 mg tablet 5 mg PO DAILY metoprolol succinate 50 mg Tablet Extended Release 24 Hr 50 mg PO DAILY allopurinol 100 mg Tablet 100 mg PO DAILY nitroglycerin 0.4 mg Tablet, Sublingual 0.4 mg SUBLINGUAL Q5M PRN lansoprazole 30 mg Tablet,Disintegrat, Delay Rel See Rx Instructions .ROUTE .COMPLEX Rx Instructions: 15 mg orally 1 every other day Discontinued clopidogrel 75 MG tablet 75 mg PO DAILY Discharge Instructions Additional Instructions: Absolutely no lifting until you are evaluated for surgery. Watch for signs and symptoms of obstruction in the hernias including increased pain, nausea and vomiting. Continue to take any kind of medication that you need to prevent constipation which could include stool softeners. I understand that you often have diarrhea, so this may not be an issue. Referrals: Moy Berry MD [ [facility] STAFF PHYSICIAN] - 10/17/24 2:30 pm Activity:: no lifting >5 pounds Equipment/Supplies:: No Equipment Needed Diet:: As Tolerated Discharge Orders Discharge Orders: Discharge Order (Routine); Ordered 10/13/24 Ordered By: Delmis Ann James Discharge Data Discharge Date/Time-TO BE ENTERED AT DEPARTURE: 10/13/24 14:52 DS: Summary Time Spent with Patient providing and/or coordinating discharge services: Less than 30 minutes Status at Discharge Functional status at discharge: independent ambulation Overall status at discharge: patient is back to baseline Mental Status: mental status grossly normal Speech and Movement: speech and movement normal Mood: congruent mood Affect: normal affect Quality:SDOH Health Related Social Needs: No Data to Display Exam Narrative Exam Narrative: During morning rounds the patient was sitting up in a chair, comfortable and relaxed. His was at the bedside. During afternoon rounds he is much the same, having eaten a full meal tray and feeling well. Const General: cooperative, healthy appearing and comfortable Orientation: oriented x3 HENMT Head: normal to inspection Eyes General: appearance normal, both eyes and all related structures Pupils: PERRL Resp Effort & Inspection: normal respiratory effort Auscultation: clear to auscultation bilaterally Cardio Rate: regular rate Rhythm: regular rhythm Heart Sounds: S1 normal, S2 normal and no murmurs GI Palpation: soft and nontender Other: Bilateral very large inguinal hernias which are incarcerated. The left hernia feels very full but is nontender to palpation, is unable to be reduced, has no overlying skin erythema. The right hernia sac feels soft, is nonreducible Neuro General: patient alert and patient awake Speech: speech normal Gait: normal gait Motor: muscle tone normal throughout Psych Mental Status: mental status grossly normal Speech and Movement: speech and movement normal Mood: congruent mood Affect: normal affect Attitude: cooperative Thought Process: normal Thought Content: normal Insight: insight good Judgment: judgment good DS: Data Vitals/I&O Vitals and I&O: Vital Signs Temperature 37.1 C 10/13/24 10:50 Temperature Source Temporal Artery Scan 10/13/24 10:50 Pulse 55 L 10/13/24 10:58 Pulse 58 L 10/12/24 11:32 Respiratory Rate 16 10/13/24 10:50 Respiratory Effort Normal 10/12/24 13:40 Respiratory Depth Normal 10/12/24 13:40 Respiratory Pattern Normal 10/12/24 13:40 Blood Pressure 118/49 L 10/13/24 10:58 Blood Pressure Mean 80 10/12/24 11:32 Blood Pressure Position Sitting 10/12/24 07:03 Pulse Oximetry 97 10/13/24 10:50 Oxygen Delivery Method Room Air 10/13/24 10:50 Oxygen Flow Rate 0 10/13/24 10:50 Pain Level 0 10/13/24 10:50 Intake & Output 10/12/24 10/13/24 10/13/24 23:59 11:59 23:59 Intake Total 260 / 970 1250 / 1300 50 / 1300 Balance 260 / 970 1250 / 1300 50 / 1300 Weight 80.694 kg Intake: IV 260 / 970 1250 / 1300 50 / 1300 Oral 0 / 0 Other: Urine Color Yellow Urine Appearance Clear Urine Odor Normal Comment Patient voids ind. in toilet. Data Completed and Pending Labs on day of discharge: Labs from last 24 hours 10/13/24 06:01 WBC 8.52 RBC 4.01 L Hgb 12.8 L D Hct 40.2 MCV 100 H MCH 31.9 MCHC 31.8 L RDW 14.7 H Plt Count 151 MPV 10.3 Immature Gran % 0.2 Neutrophils % 73.4 Lymphocytes % 15.8 Monocytes % 9.0 Eosinophils % 1.4 Basophils % 0.2 Nucleated RBC % 0.0 Absolute Neutrophils 6.24 Absolute Lymphocytes 1.35 Absolute Monocytes 0.77 Absolute Eosinophils 0.12 Absolute Basophils 0.02 Sodium 146 H Potassium 4.5 Chloride 109 H Carbon Dioxide 28.2 Anion Gap 8.8 BUN 19 H Creatinine 1.2 Est GFR (CKD-EPI 2020) 63.46 Glucose 122 H Calcium 8.8 PFSH All Active Problems (Updated 10/13/24 @ 14:44 by Delmis James MD) Bilateral inguinal hernia with obstruction (Acute) SBO (small bowel obstruction) (Acute) Aspiration pneumonia of right lung (Acute) Fecal occult blood test positive (Acute) Medical History (Updated 10/13/24 @ 14:44 by Delmis James MD) Bilateral inguinal hernia Coronary artery disease Surgical History Coronary Stent Colonoscopy - MAC (02/28/16) Social History Smoking/Tobacco Use Status: Former Tobacco Use Quit Date: 06/14/11 Smoking risk assessment performed?: Yes Alcohol Intake: current Alcohol Intake frequency: 0-2 drinks per day Drug use: Never Substance use type: does not use Housing: house Do you feel safe at home: Yes Do you feel safe in your relationship?: Yes Time Spent with Patient Time Spent with Patient: 45-69 minutes Time was spent: preparing to see the patient(eg.review tests), obtaining and/or reviewing separately otained hiistory, indepentently interpreting results, counseling the patient and care coordination
--- NOTE | 2024-10-13 15:02 | CMDISCH_ITS ---
Date of service: 10/13/24 Time of Service: 15:02 LACE Index Scoring Tool Questions: Length of Stay (in days): 1 Was the patient admitted via the E.D.?: Yes E.D. Visits: 1 Answers: Total Score: 5 Risk of Readmission: Low Risk Care Management Discharge Plan Reason for Hospitalization: SBO Discharge Plan: Marco will be discharged home with no new services. He will follow up with his surgeon and plan of care and transport with family. Patient/Family Education Needs: Review of discharge instructions, limitations, follow up plan and discuss Ask Me Three [facility] Health Related Social Needs: No Data to Display
== END 2024-10-13 15:31 | disposition home or self-care (01) ==
LOC: ER 11:28 → MS 14:08
PROVIDERS: Admitting Provider Student in an Organized Health Care Education/Training Program; Emergency Provider Emergency Medicine; PCP Internal Medicine; Visit Provider Student in an Organized Health Care Education/Training Program
DX: K40.00 Bilateral inguinal hernia, with obstruction, without gangrene, not specified as recurrent (principal); R11.2 Nausea with vomiting, unspecified; J69.0 Pneumonitis due to inhalation of food and vomit; D72.829 Elevated white blood cell count, unspecified; I25.10 Atherosclerotic heart disease of native coronary artery without angina pectoris; R10.30 Lower abdominal pain, unspecified; Z95.5 Presence of coronary angioplasty implant and graft; Z79.899 Other long term (current) drug therapy
CPT/HCPCS: 36415; 80048; 80053; 83690; 96361; 96365; 96366; 96367; 96368; 96375; 96376; 99222; 99238; 99285; 71046; 74022; 74177; 85025; G0378; J0131; J0295; J2250; J2405; J2543; J3490

== ENCOUNTER → 2024-10-17 14:19 | Outpatient (BNVA) | payer MEDICARE, BC, SELFPAY | PROVIDERS: PCP Family Medicine; Referring Provider Family Medicine; Visit Provider Student in an Organized Health Care Education/Training Program | DX: Z01.818 Encounter for other preprocedural examination (principal); K40.30 Unilateral inguinal hernia, with obstruction, without gangrene, not specified as recurrent | CPT/HCPCS: NC OV ==

== ENCOUNTER 2024-10-25 06:05 | Day surgery (SDC) | payer MEDICARE, BC, SELFPAY ==
[2024-10-24 09:06] VITALS: BP 137/67; PULSE 51
[2024-10-25] VITALS (42 sets, daily range): BP systolic 96–177; BP diastolic 28–89; PULSE 38–64; RESP 11–20; TEMP 36.2–37.1; O2SAT 95–100; BMI 29.9
--- NOTE | 2024-10-25 06:21 | ANES.PREOP_ITS ---
General Info Date of Service Date Performed: 10/25/24 Height: 5 ft 5 in Weight: 81.703 kg Body Mass Index (BMI): 29.9 Surgical Procedure: Operation Date: 10/25/24 07:40 Proposed Procedure Side Surgeon p Hernia Inguinal Laparoscopic w/Mesh Bilateral Moy Berry MD Meds Allergies and Home Medications Allergies Allergy/AdvReac Type Severity Reaction Status Date / Time No Known Allergies Allergy Verified 10/25/24 06:14 Home Medication ?Medication ?Instructions ?Recorded allopurinol 100 mg tablet 100 mg PO DAILY 12/19/20 lansoprazole 30 mg delayed See Rx Instructions .Route .COMPLEX 12/19/20 release,disintegrating tablet metoprolol succinate 50 mg 50 mg PO HS 12/19/20 tablet,extended release 24 hr nitroglycerin 0.4 mg sublingual 0.4 mg sublingual Q5M PRN 12/19/20 tablet aspirin 81 mg capsule 81 mg PO DAILY 10/12/24 furosemide 20 mg tablet 20 mg PO DAILY 10/12/24 lisinopril 5 mg tablet 5 mg PO DAILY 10/12/24 rosuvastatin 20 mg tablet 20 mg PO DAILY 10/12/24 clopidogrel 75 mg tablet 75 mg PO DAILY 10/24/24 Current Visit Medications: Current Medications Generic Name Dose Route Start Last Admin Trade Name Freq PRN Reason Stop Dose Admin Ringer's Solution 1,000 mls @ 80 mls/hr 10/25/24 06:00 IV 10/25/24 23:59 INFUSION DYLON IV Miscellaneous Supplies 1 each 10/25/24 06:00 Iv Access IV 10/25/24 23:59 DIRECTED DYLON Sodium Chloride 0 ml 10/25/24 06:00 Normal Saline Flush 10 Ml Syr IV 10/25/24 23:59 PRN PRN Sodium Chloride 0 ml 10/25/24 06:00 Normal Saline 10 Ml Vial IJ 10/25/24 23:59 DIRECTED PRN Sterile Water 0 ml 10/25/24 06:00 Water,Injection,Sterile 10 Ml Vial IJ 10/25/24 23:59 DIRECTED PRN PFSH Active Problems Active Problems: Problem Status Onset Code Bilateral inguinal hernia with obstruction Acute K40.30 Fecal occult blood test positive Acute R19.5 Medical History Medical History (Updated 10/14/24 @ 00:00 by NEHEMIAS TAMAYO) Bilateral inguinal hernia Coronary artery disease Surgical History Surgical History (Updated 10/24/24 @ 11:12 by Himanshu Garcia) H/O cardiac catheterization [address] Sears @ [facility] 08/2024 Coronary Stent Colonoscopy - MAC (02/28/16) Tobacco Smoking/Tobacco Use Status: Former Tobacco Use Passive smoking exposure: No Alcohol Alcohol Intake: current Alcohol intake frequency: 0-2 drinks per day Substance Use Substance use: Never Substance use type: does not use Vital Signs and Lab Results Vital Signs Most Recent Vital Signs in EMR: Most Recent Vital Signs Pulse BP 51 L 137/67 10/24/24 09:06 10/24/24 09:06 Lab Results Blood Type / Crossmatch: No Data to Display Complete Blood Count: White Blood Count 8.52 10^3/uL (4.4-10.8) 10/13/24 06:01 Red Blood Count 4.01 10^6/uL (4.36-5.78) L 10/13/24 06:01 Hemoglobin 12.8 g/dL (13.5-17.5) L 10/13/24 06:01 Hematocrit 40.2 % (40.0-50.0) 10/13/24 06:01 Platelet Count 151 10^3/uL (130-400) 10/13/24 06:01 Complete Metabolic Panel: Sodium 146 mmol/L (136-145) H 10/13/24 06:01 Potassium 4.5 mmol/L (3.5-5.1) 10/13/24 06:01 Chloride 109 mmol/L (98-107) H 10/13/24 06:01 Carbon Dioxide 28.2 mmol/L (21.0-32.0) 10/13/24 06:01 BUN 19 mg/dL (7-18) H 10/13/24 06:01 Creatinine 1.2 mg/dL (0.70-1.30) 10/13/24 06:01 Est GFR (CKD-EPI 2020) 63.46 (mL/min/1.73m2) 10/13/24 06:01 Calcium 8.8 mg/dL (8.5-10.1) 10/13/24 06:01 Albumin 4.3 g/dL (3.4-5.0) 10/12/24 07:30 Glucose 122 mg/dL (74-106) H 10/13/24 06:01 Liver Function Panel: Alanine Aminotransferase (ALT/SGPT) 32 U/L (16-63) 10/12/24 07: 30 Aspartate Amino Transf (AST/SGOT) 27 U/L (15-37) 10/12/24 07:30 Coagulation Panel: No Data to Display Cardiac Panel: No Data to Display Arterial Blood Gas: No Data to Display Venous Blood Gas: No Data to Display Pancreas Panel: Lipase 95 U/L (<78) H 10/12/24 07:30 Thyroid Panel: No Data to Display Infectious Disease: No Data to Display Blood Cultures: No Data to Display Toxicology Panel: No Data to Display Anesthesia Assessment and Plan Anesthesia History Personal History: PONV and Delayed Emergence Family History: No Family History of Anesthesia Complications Exercise Tolerance Exercise Tolerance: Metabolic Equivalents>4 Cardiac & Pulmonary Exam Cardiac Exam: Normal S1/S2 Heart Sounds Pulmonary Exam: Clear Bilateral Breath Sounds Implantable Cardiac Device Does patient have a Pacemaker or an ICD?: No Airway Exam Known Difficult Airway: No Mallampati Class: 3 Mouth Opening: Normal (> 3cm) Thyromental Distance: Greater than 3 cm Neck Range of Motion: Full ROM and Limited ROM Neck Circumference: Normal Teeth Condition: Normal Dentition ASA Classification ASA Score: ASA 3 Emergency Case?: No NPO Status NPO Status: NPO Clears >2 hours, Solids >8 hours Anesthesia Plan Resuscitation Status: Full Code Anesthesia Technique: General Anesthesia Airway Planned: Endotracheal Tube Pain Management: Surgeon and patient request nerve block Monitors Used: Standard Monitors Preoperative Comments:: 74 yo male for hernia repair. Sig PMHx: CAD/CHF [place] [facility] [place] concerns. 2010 AMI with thrombectomy/stent, 2014 NSTEMI MARE. Lasix, metoprolol, clopidopgrel), HTN (lisinopril), GERD (lansoprazole). Former smoker, occ EtOH. ECHO: LVEF 42%, akinesis septum, mid-distal lateral wall and the apical cap. hypokinetic anteroseptum and basal lateral valencia. trace MR/TR. borderline LVH. Discussed GAETT with rectus sheath block. We discussed that although he is doing well cardiac mccollum that he is still at an increased risk for a complications due to his previous MO/stents, and his extensive atherosclerosis on CT.
[2024-10-25] MEDS: Lactated Ringers 1,000 ML 80 ML IV (06:41)
--- NOTE | 2024-10-25 08:45 | RT.EKG_ITS ---
APPROVED REPORT Exam: Resting ECG Reason for Exam: intraop hypotension with history of [place]/ASCVD Patient Location: O HR:39 bpm ECG Measurements Heart Rate 39 AXIS KS 244 P 38 QRSd 150 QRS -65 QT 502 T 222 QTc 403 Conclusion Sinus bradycardia...rate< 60 Prolonged KS interval...KS >230, V-rate 30- 49 IVCD, consider RBBB...QRSd>120mS, terminal axis(90,270) Probable anterior infarct, age indeterminate...Q >35mS, T neg, V2-V5 Abnormal T, consider ischemia, lateral leads...T <-0.20mV, I aVL V5 V6
[2024-10-25] MEDS: Norepinephrine in D5W 8 MG/250 ML BAG 9.375 MG IV (08:53)
[2024-10-25] MEDS: Clopidogrel 300 MG TAB PO (09:24)
--- NOTE | 2024-10-25 09:37 | PGE_ITS ---
Date of Service Date of service: 10/25/24 Time of Service: 09:37 Assessment and Plan Assessment and plan (1) Bilateral inguinal hernia with obstruction: Status: Acute Assessment and plan: 74-year-old man with bilateral inguinal hernias that have been symptomatic (caused a recent bowel obstruction) warranting operative intervention. Unfortunately he was very hemodynamically unstable and non-responsive vasopressor medications after induction of anesthesia and prior to us starting the surgery. I do not think he had a cardiac event. After a detailed discussion with his , she reports that his heart always behaves in this manner when he is doing physical therapy and other situations. He is doing fine in the PACU and will be able to be discharged home. I will initiate a follow-up with Dr. Sears in the near future and have a collaborative preoperative discussion with anesthesia prior to rescheduling his otherwise elective, but semi-urgent hernia repair. He should still consider an elective repair because the only situation worsen this would be having to do this as an emergency (another SBO) on dual antiplatelet therapy, dehydrated with potential metabolic derangements, etc. Plan: Urgent follow-up with Dr. Sears for recommendations, if any. Reschedule surgery after that follow-up appointment. Anesthesia preoperative consultation and discussion Subjective Subjective Interval history since last seen: We took Marco to the operating room to do his laparoscopic bilateral hernia surgery. We did not do any surgery. There was no insufflation or incisions. After induction of anesthesia he required significant vasopressor administration and remained in sustained sinus bradycardia that was unresponsive to medication. A collaboration decision between anesthesia and surgery was made to abort the procedure at this time since we had not even started operating. Marco was taken to the PACU. He denied any chest pain and had no complaints whatsoever. He had been off of Plavix for a week. He remained on his aspirin dose and last took it yesterday. We gave him a loading Plavix dose and his aspirin dose in the PACU. Exam Narrative Exam Narrative: General: Nontoxic, comfortable and interactive Neuro: Alert and oriented x 3 Chest: Nonlabored breathing Heart: Sinus bradycardia (heart rate 38-48) Objective Last Vital Signs Temp 97.5 F L 10/25/24 09:15 Pulse 55 L 10/25/24 06:21 Resp 20 10/25/24 06:21 BP 146/65 H 10/25/24 06:21 Pulse Ox 98 10/25/24 06:21 Time Spent with Patient Time Spent with Patient: >50 minutes Time was spent: preparing to see the patient(eg.review tests), obtaining and/or reviewing separately otained hiistory, ordering medications,tests, procedures, referring, communicating with other health transitions rn care coordinator, indepentently interpreting results, counseling the patient, care coordination and other
--- NOTE | 2024-10-25 09:37 | W.ANESNERVE ---
Nerve Block Single Injection Procedure Date and Time Date Performed: 10/25/24 Procedure Start: 07:56 Location Where Procedure Performed Procedure Location: Operating Room Procedure Stop: 08:04 Reason Performed: Postoperative Analgesia Requesting Provider: Moy Berry Timeout Performed Timeout Performed: Yes Monitoring Used ECG, Blood Pressure and SpO2 Sterility Sterility: Hand Hygiene, Surgical Cap, Surgical Mask, Sterile Gloves and Chlorhexidine Sedation Given During Procedure Sedation Given (Indicate Dose Given): No Sedation given Patient Mental Status Patient Mental Status: Performed under general anesthesia Nerve Block 1st Nerve Block: Laterality: Bilateral Block Type: TAP Bilateral Ultrasound Image Saved?: Yes Needle / Catheter Used: 100mm SonoPlex II Local Anesthetic Bolus (Indicate Dose Given): Injected in 3-5ml increments after negative blood aspiration, Half of Total block solution given into each side, Bupivacaine 0.25% Dose:: 40 mL and Exparel Dose:: 20 mL Additives (Indicate Dose Given): None Ultrasound: Sterile probe cover and gel used Nerve Stimulator: Not Used Paresthesia: None Procedure Tolerated: No Complications Procedure Outcome: Successful Procedure Comment: Regional anesthesia/abdominal wall blocks discussed preoperative with pt and about risks and benefits of blocks, however incorrect block name written on consent and preop. Given that both TAP and rectus have the same risk profile TAP was performed. Performed By: Deshaun Camara
[2024-10-25] MEDS: Aspirin 81 MG CHEW PO (09:46)
--- NOTE | 2024-10-25 10:25 | W.PM.DSUDISC ---
Date of service: 10/25/24 Discharge Plan Disposition Patient Disposition: Home Condition: Stable Discharge Details Attending Provider: Moy Berry Primary Care Provider: Gene Gill Home Meds and New Rx's Prescriptions: No Action aspirin 81 mg capsule 81 mg PO DAILY furosemide 20 mg tablet 20 mg PO DAILY rosuvastatin 20 mg tablet 20 mg PO DAILY lisinopril 5 mg tablet 5 mg PO DAILY clopidogrel 75 mg tablet 75 mg PO DAILY metoprolol succinate 50 mg Tablet Extended Release 24 Hr 50 mg PO HS allopurinol 100 mg Tablet 100 mg PO DAILY nitroglycerin 0.4 mg Tablet, Sublingual 0.4 mg SUBLINGUAL Q5M PRN lansoprazole 30 mg Tablet,Disintegrat, Delay Rel See Rx Instructions .ROUTE .COMPLEX Rx Instructions: 15 mg orally 1 every other day Discharge Instructions Additional Instructions: FINDINGS: We canceled your surgery because after we put you to sleep, your heart rate and your blood pressure became very low. This is common, but usually we can fix it. In your case, we couldn't fix it. So we made a decision to wake you back up and we did not start your surgery. We have already sent a message to Dr. Sears about this. Please call his office and schedule an appointment to see him and discuss it with him and he may want to change some of your medications and doses. Alternatively, he may say that this is ok and you can have surgery despite having the low heart rate. He may say that you should not have anesthesia because of this. Our next steps on rescheduling your surgery will be after Dr. Sears discusses this with you and gives us some expert recommendations and feedback. In the meantime, keep taking your Plavix and Aspirin. We still think the best decision is to fix your hernias before it becomes an emergency again (another bowel obstruction) but we should do this after your heart doctor considers the events and any changes that you might need. Activity:: Activity as Tolerated Diet:: As Tolerated Discharge Orders Discharge Orders: Discharge Order (Routine); Ordered 10/25/24 Ordered By: Moy Berry DS: Diagnosis Discharge Diagnosis (1) Bilateral inguinal hernia with obstruction: Status: Acute
[2024-10-25 10:57] LABS: Troponin I 16 ng/L (<or=76)
--- NOTE | 2024-10-25 11:10 | W.ANESPOSTOP ---
Postoperative Evaluation Date, Time and Location Date Performed: 10/25/24 Time Performed: 11:10 Patient Location: Day Surgery Unit Vital Signs Most Recent Imported Vital Signs: Most Recent Vital Signs Temp Pulse Resp BP Pulse Ox 36.2 C L 53 L 20 116/58 L 99 10/25/24 10:29 10/25/24 10:29 10/25/24 10:29 10/25/24 10:29 10/25/24 10:29 Pain Score Most Recent Pain Score: Most Recent Pain Score Pain Level 0 10/25/24 10:29 Assessment Mental Status: Awake (Alert & Oriented to Patient Baseline) Airway and Respiratory Function: Patent airway with normal (patient baseline) respiratory exam Cardiovascular Function: Hemodynamically Stable Hydration Status: Adequately Hydrated Nausea & Vomiting: No Nausea or Vomiting Pain: Pt. Denies Any Pain Peripheral Nerve Block: Regional nerve block not resolved at time of post operative discharge Postoperative Comments:: Case was reviewed in the PACU with the pt. ECG and trops pending. Denies pain, feels good. .
== END 2024-10-25 11:24 | disposition home or self-care (01) ==
PROVIDERS: Nurse Anesthetist, Certified Registered; PCP Family Medicine; Visit Provider Student in an Organized Health Care Education/Training Program
PROC: (CPT 49650; principal; 2024-10-25 07:30)
DX: K40.30 Unilateral inguinal hernia, with obstruction, without gangrene, not specified as recurrent (principal); Z53.09 Procedure and treatment not carried out because of other contraindication; R00.1 Bradycardia, unspecified
CPT/HCPCS: 49650; 36415; 64488; 84484; 93005; 93010; J0171; J0665; J0666; J1100; J2405; J2598; J2704; J3010

== ENCOUNTER 2024-11-14 09:07 | Outpatient (RCR) | payer SELFPAY ==
[2024-10-17 00:08] VITALS: BP 127/64; PULSE 51
[2024-10-19 09:01] VITALS: BP 143/66; PULSE 49; O2SAT 95
[2024-10-26 08:59] VITALS: BP 128/59; PULSE 54; O2SAT 95
[2024-10-31 09:40] VITALS: BP 147/66; PULSE 52
[2024-11-02 09:36] VITALS: BP 126/67; PULSE 51
[2024-11-07 09:09] VITALS: BP 125/56; PULSE 52
[2024-11-09 09:08] VITALS: BP 125/63; PULSE 50
[2024-11-14 09:09] VITALS: BP 125/55; PULSE 55
== END 2024-11-15 23:59 | disposition home or self-care (01) ==
LOC: CR 09:07
PROVIDERS: PCP Internal Medicine; Visit Provider Internal Medicine Cardiovascular Disease
DX: R69 Illness, unspecified (principal)

== ENCOUNTER 2024-12-12 09:03 | Outpatient (RCR) | payer SELFPAY ==
[2024-11-16 00:05] VITALS: BP 127/64; PULSE 51
[2024-11-16 09:13] VITALS: BP 131/58; PULSE 49
[2024-11-21 09:31] VITALS: BP 122/53; PULSE 53
[2024-11-23 10:16] VITALS: BP 123/54; PULSE 49
[2024-11-28 09:44] VITALS: BP 126/62; PULSE 51
[2024-11-30 09:15] VITALS: BP 120/53; PULSE 50
[2024-12-05 10:14] VITALS: BP 127/65; PULSE 48
[2024-12-07 09:15] VITALS: BP 117/55; PULSE 51
[2024-12-12 09:05] VITALS: BP 123/67; PULSE 51
[2024-12-14 09:28] VITALS: BP 132/55; PULSE 48
== END 2024-12-16 23:59 | disposition home or self-care (01) ==
LOC: CR 09:03
PROVIDERS: PCP Family Medicine; Visit Provider Internal Medicine Cardiovascular Disease
DX: R69 Illness, unspecified (principal)

== ENCOUNTER 2025-01-11 09:00 | Outpatient (RCR) | payer SELFPAY ==
[2024-12-17 00:05] VITALS: BP 127/64; PULSE 51
[2024-12-19 09:14] VITALS: BP 133/61; PULSE 50
[2024-12-26 09:13] VITALS: BP 129/54; PULSE 48
[2024-12-28 09:33] VITALS: BP 125/62; PULSE 52
[2025-01-02 10:03] VITALS: BP 108/57; PULSE 65
[2025-01-04 10:36] VITALS: BP 120/67; PULSE 50
[2025-01-09 09:14] VITALS: BP 134/64; PULSE 55
[2025-01-11 09:00] VITALS: BP 118/56; PULSE 57
== END 2025-01-15 23:59 | disposition home or self-care (01) ==
LOC: CR 09:00
PROVIDERS: PCP Family Medicine; Visit Provider Internal Medicine Cardiovascular Disease
DX: R69 Illness, unspecified (principal)

== ENCOUNTER 2025-01-13 22:04 | Emergency (ER) | payer MEDICARE, BC, SELFPAY ==
--- NOTE | 2025-01-13 22:00 | RT.EKG_ITS ---
APPROVED REPORT Exam: Resting ECG Reason for Exam: Dizziness Patient Location: E HR:63 bpm ECG Measurements Heart Rate 63 AXIS AR 192 P 21 QRSd 149 QRS -68 QT 428 T 91 QTc 439 Conclusion Sinus rhythm...normal P axis, V-rate 60- 99 Unchanged septal precordial lead repolarization abnormality compared to 10-25-2024, improved repolarizations now with upright twaves in lateral precodial leads
[2025-01-13 22:13] VITALS: BP 148/57; PULSE 68; RESP 18; TEMP 36; O2SAT 100
[2025-01-13 22:45] LABS: Abs Immature Grans 0.02 10^3/uL (0.0-0.06); Absolute Basophil Count 0.04 10^3/uL (0.0-0.2); Absolute Eosinophil Count 0.15 10^3/uL (0.0-0.7); Absolute Lymphocyte Count 2.24 10^3/uL (1.2-3.4); Absolute Monocyte Count 0.82 10^3/uL (0.1-0.8); Absolute Neutrophil Count 6.31 10^3/uL (1.2-6.7); Basophils % 0.4 %; Eosinophils % 1.6 %; HCT 44.2 % (40.0-50.0); HGB 14.6 g/dL (13.5-17.5); Immature Grans % 0.2 %; Lymphocytes % 23.4 %; MCH 32.1 pg (27.0-33.0); MCV 97 fL (80-95); Monocytes % 8.6 %; Neutrophils % 65.8 %; RBC 4.55 10^6/uL (4.36-5.78); RDW 14.3 % (11.8-14.1); RDW-SD 50.8 fL; WBC 9.58 10^3/uL (4.4-10.8)
--- NOTE | 2025-01-13 22:47 | W.ED.GENAD ---
Discharge Plan Disposition Patient Disposition: Home Condition: Good Discharge Details Clinical Impression: Hypomagnesemia, Nausea alone Primary Care Provider: Gene Gill ED Provider: Mohamud Glasgow Home Meds and New Rx's Prescriptions: No Action aspirin 81 mg capsule 81 mg PO DAILY furosemide 20 mg tablet 20 mg PO DAILY rosuvastatin 20 mg tablet 20 mg PO DAILY lisinopril 5 mg tablet 5 mg PO DAILY clopidogrel 75 mg tablet 75 mg PO DAILY metoprolol succinate 50 mg Tablet Extended Release 24 Hr 50 mg PO HS allopurinol 100 mg Tablet 100 mg PO DAILY nitroglycerin 0.4 mg Tablet, Sublingual 0.4 mg SUBLINGUAL Q5M PRN lansoprazole 30 mg Tablet,Disintegrat, Delay Rel See Rx Instructions .ROUTE .COMPLEX Rx Instructions: 15 mg orally 1 every other day Discharge Instructions Instructions: Low Magnesium Level, Nausea and Vomiting, Adult ED Additional Instructions: You can continue to take your regular medications as previously directed. Follow-up with [facility] cardiology next week as planned for consideration of elective outpatient cardiac catheterization at what ever interval they feel appropriate. You can always return to the ER for any new concerns or sudden changes in your health which you feel require emergency medical attention. HPI General Date/Time Provider Initiated Documentation: 01/13/25 22:13. HPI Narrative: The patient is a 74-year-old male, with a past medical history significant for coronary artery disease status post cardiac catheterization and stenting, recent bowel obstruction in October of this year in which she underwent surgery which was ultimately stopped due to cardiac complications, who is pending follow-up through the [facility] cardiology service this week to schedule a repeat catheterization, presents to the emergency department this evening complaining of dizziness, nausea, mild weakness, and headache which began at around 730 to 8 PM but has now significantly improved. The patient initially had said that he was concerned about some left arm sensation changes, but he denied that when I spoke to him during our interview. The patient did some lifting today of a mower deck and walked on a treadmill for an hour. The patient said I was just a little nervous with my heart history, when we discussed his symptoms. Most of them have now resolved. His did not have any similar symptoms. He denies having any recent sick contacts. He denies having any other recent medical illnesses such as runny nose, sore throat, nasal congestion, cough, fever, or chills. He has not had any recent medication changes. Related Data Home Medications ?Medication ?Instructions ?Recorded ?Confirmed allopurinol 100 mg tablet 100 mg PO DAILY 12/19/20 01/13/25 lansoprazole 30 mg delayed See Rx Instructions .Route .COMPLEX 12/19/20 01/13/25 release,disintegrating tablet metoprolol succinate 50 mg 50 mg PO HS 12/19/20 01/13/25 tablet,extended release 24 hr nitroglycerin 0.4 mg sublingual 0.4 mg sublingual Q5M PRN 12/19/20 01/13/25 tablet aspirin 81 mg capsule 81 mg PO DAILY 10/12/24 01/13/25 furosemide 20 mg tablet 20 mg PO DAILY 10/12/24 01/13/25 lisinopril 5 mg tablet 5 mg PO DAILY 10/12/24 01/13/25 rosuvastatin 20 mg tablet 20 mg PO DAILY 10/12/24 01/13/25 clopidogrel 75 mg tablet 75 mg PO DAILY 10/24/24 01/13/25 Allergies Allergy/AdvReac Type Severity Reaction Status Date / Time No Known Allergies Allergy Verified 01/13/25 22:16 General Stated Complaint: GenMedical ZORAIDA: 3 Exam Const General: cooperative, healthy appearing, comfortable, no acute distress and well developed Neck Neck: full ROM and no JVD Chest Chest: normal inspection of the chest and normal palpation of entire chest wall Resp Effort & Inspection: normal respiratory effort and able to speak in complete sentences Auscultation: clear to auscultation bilaterally Cardio Rate: regular rate Rhythm: regular rhythm Heart Sounds: S1 normal and S2 normal GI Inspection: normal to inspection Palpation: soft Auscultation: normal bowel sounds Skin General skin exam: no rashes or lesions noted and turgor normal Neuro General: patient alert, patient oriented x3, moves all extremities and no focal motor deficits Extrem General: full ROM, capillary refill normal, no clubbing, cyanosis or edema and no pedal edema Psych Appearance: well kempt Mental Status: mental status grossly normal Speech and Movement: speech and movement normal Affect: normal affect Attitude: cooperative Judgment: judgment good Course The patient has had 2 troponins here measuring less than the detected threshold for myocardial ischemia, not even rising to 17 ng/L. This should be exclusionary for myocardial ischemia as an etiology for the patient's symptoms. He did receive some IV magnesium here for a modestly low magnesium level. The patient will be discharged to plan ongoing follow-up with cardiology next week for consideration of elective outpatient catheterization. Vital Signs Vital signs: Vital Signs Temperature 36 C L 01/13/25 22:13 Pulse 68 01/13/25 22:13 Respiratory Rate 18 01/13/25 22:13 Blood Pressure 148/57 H 01/13/25 22:13 Pulse Oximetry 100 01/13/25 22:13 Temperature 36 C L 01/13/25 22:13 Pulse 68 01/13/25 22:13 Respiratory Rate 18 01/13/25 22:13 Blood Pressure 148/57 H 01/13/25 22:13 Pulse Oximetry 100 01/13/25 22:13 Pain Level 1 01/13/25 22:13 Medical Decision Making The patient was seen and examined. He appears in no distress and has normal vital signs here in the emergency room. The patient's EKG represents a normal sinus rhythm with a ventricular response rate of 63 bpm he has a normal QTc and normal IA interval. The patient does have a nonspecific interventricular conduction delay and some mildly abnormal repolarization in the septal precordial leads, but this is essentially unchanged from a prior study from 10-25-2024. The patient has improved repolarization and other leads, most notably the lateral precordial leads. I would be doubtful that this tracing represents acute myocardial injury or ischemia. It is improved compared to the prior study. The patient's symptoms have now resolved and are not particularly specific for myocardial ischemia as an etiology. The patient had more generalized symptoms including a headache, dizziness, and nausea. This may be the beginning of an early viral syndrome. Other etiologies might include mild dehydration secondary to exertion today, early ileus, or some form of early onset GI disease. The patient will have cardiac screening labs obtained here in the emergency room as well as generalized chemistries, chest x-ray, and will be observed for any changes in his autonomic function and physiology. If the symptoms are not recurrent and the patient has normal laboratory workup, he can most likely be discharged to close follow-up which is planned for early next week with [facility] cardiology. PFSH All Active Problems (Updated 01/14/25 @ 01:45 by Mohamud Glasgow MD) Nausea alone (Acute) Hypomagnesemia (Acute) Sinus bradycardia (Acute) Bilateral inguinal hernia with obstruction (Acute) Fecal occult blood test positive (Acute) Medical History (Updated 01/14/25 @ 01:45 by Mohamud Glasgow MD) Bilateral inguinal hernia Coronary artery disease Surgical History H/O cardiac catheterization [address] Sears @ [facility] 08/2024 Coronary Stent Colonoscopy - MAC (02/28/16) Social History Smoking/Tobacco Use Status: Former Tobacco Use Quit Date: 06/14/11 Smoking risk assessment performed?: Yes Alcohol Intake: current Alcohol Intake frequency: 0-2 drinks per day Drug use: Never Substance use type: does not use Housing: house Do you feel safe at home: Yes Do you feel safe in your relationship?: Yes
[2025-01-13 23:00] LABS: Platelet Count 220 10^3/uL (130-400)
[2025-01-13] MEDS: Ondansetron 4 MG/2 ML VIAL IVP (23:43)
[2025-01-13 23:54] LABS: ALT 24 U/L (16-63); AST 18 U/L (15-37); Albumin 3.8 g/dL (3.4-5.0); Alkaline Phosphatase 66 U/L (46-116); Anion Gap 10.1 mmol/L (3-11); BUN 20 mg/dL (7-18); Bilirubin, Total 0.4 mg/dL (0.2-1.0); CO2 28.9 mmol/L (21.0-32.0); CREATININE 1.1 mg/dL (0.70-1.30); Calcium 9.3 mg/dL (8.5-10.1); Chloride 101 mmol/L (98-107); Estimated GFR 70.44 (mL/min/1.73m2); Glucose 117 mg/dL (74-106); Magnesium 1.5 mg/dL (1.8-2.4); Potassium 4.1 mmol/L (3.5-5.1); Sodium 140 mmol/L (136-145); Total Protein 7.8 g/dL (6.4-8.2); Troponin I 14 ng/L (<or=76)
--- NOTE | 2025-01-14 | DI.RAD_ITS ---
Exam(s) XR PORTABLE CHEST AP EXAM: XR PORTABLE CHEST AP CLINICAL HISTORY: Chest pain TECHNIQUE: 2D digital imaging was performed. COMPARISON: CR XR ABD FLAT UPRIGHT PA CHEST from 10/13/2024 FINDINGS: LUNGS: Clear. No pleural abnormality seen. HEART: Enlarged, unchanged. AORTA: Normal diameter. BONES: Unremarkable for age. Soft tissues: Unremarkable. IMPRESSION: Cardiomegaly, no acute findings. The preliminary [facility] report was reviewed. DATA REPOSITORY: RADIATION DOSE DELIVERED:
[2025-01-14] MEDS: MAGNESIUM SULFATE 2 GM/50 ML BAG IV_INF (01:02)
[2025-01-14 01:10] LABS: Troponin I 13 ng/L (<or=76)
[2025-01-14] MEDS: Normal Saline 1,000 ML 100 ML IV (01:21)
[2025-01-14 01:34] VITALS: BP 138/51; PULSE 57; O2SAT 98
--- NOTE | 2025-01-14 01:37 | DI.VRAD_ITS ---
PROCEDURE INFORMATION: Exam: XR Chest Exam date and time: 01/14/2025 1:29 AM Age: 74 years old Clinical indication: Other: Chest pain TECHNIQUE: Imaging protocol: Radiologic exam of the chest. Views: 1 view. COMPARISON: No relevant prior studies are available for comparison. FINDINGS: Lungs: No focal consolidation seen. Pleural spaces: No large pleural effusion seen. Heart/Mediastinum: Enlarged cardiac silhouette. Bones/joints: No acute abnormality. IMPRESSION: Enlarged cardiac silhouette. Dictated and Authenticated by: Sarah Singh MD. Orderin Myah Mallory MD
[2025-01-14 02:01] VITALS: BP 138/51; PULSE 57; RESP 20; O2SAT 98
== END 2025-01-14 02:02 | disposition home or self-care (01) ==
PROVIDERS: Emergency Provider Emergency Medicine Emergency Medical Services; PCP Family Medicine
DX: E83.42 Hypomagnesemia (principal); R11.0 Nausea; I25.10 Atherosclerotic heart disease of native coronary artery without angina pectoris; Z95.5 Presence of coronary angioplasty implant and graft; Z79.82 Long term (current) use of aspirin; Z79.02 Long term (current) use of antithrombotics/antiplatelets; Z87.891 Personal history of nicotine dependence
CPT/HCPCS: 80053; 93005; 96374; 96375; 99284; 71045; 83735; 84484; 85025; 93010; J2405; J3475

== ENCOUNTER 2025-02-15 09:00 | Outpatient (RCR) | payer SELFPAY ==
[2025-01-16 00:04] VITALS: BP 118/56; PULSE 57
[2025-01-16 09:26] VITALS: BP 128/61; PULSE 56
[2025-01-18 08:59] VITALS: BP 112/64; PULSE 49
[2025-01-23 09:30] VITALS: BP 120/53; PULSE 50
[2025-01-25 09:07] VITALS: BP 123/54; PULSE 43
[2025-01-30 09:15] VITALS: BP 125/59; PULSE 53
[2025-02-01 09:18] VITALS: BP 138/57; PULSE 51
[2025-02-06 09:11] VITALS: BP 135/70; PULSE 53
[2025-02-08 09:15] VITALS: BP 123/70; PULSE 57
[2025-02-13 09:18] VITALS: BP 137/66; PULSE 50
[2025-02-15 09:19] VITALS: BP 115/65; PULSE 46
== END 2025-02-15 23:59 | disposition home or self-care (01) ==
LOC: CR 09:00
PROVIDERS: PCP Family Medicine; Visit Provider Internal Medicine Cardiovascular Disease
DX: R69 Illness, unspecified (principal)

== ENCOUNTER 2025-03-15 09:00 | Outpatient (RCR) | payer SELFPAY ==
[2025-02-16 00:18] VITALS: BP 115/65; PULSE 46
[2025-02-22 09:42] VITALS: BP 140/70; PULSE 50
[2025-02-27 09:00] VITALS: BP 110/61; PULSE 46
[2025-03-01 09:15] VITALS: BP 134/65; PULSE 47
[2025-03-06 09:35] VITALS: BP 136/64; PULSE 48
[2025-03-08 09:04] VITALS: BP 123/65; PULSE 45
[2025-03-13 09:21] VITALS: BP 130/64; PULSE 47
[2025-03-15 09:03] VITALS: BP 130/75; PULSE 70
== END 2025-03-18 23:59 | disposition home or self-care (01) ==
LOC: CR 09:00
PROVIDERS: PCP Family Medicine; Visit Provider Internal Medicine Cardiovascular Disease
DX: R69 Illness, unspecified (principal)

== ENCOUNTER 2025-03-27 09:00 | Outpatient (RCR) | payer SELFPAY ==
[2025-03-20 09:40] VITALS: BP 140/83; PULSE 68
[2025-03-22 09:26] VITALS: BP 133/69; PULSE 54
[2025-03-27 09:28] VITALS: BP 122/59; PULSE 51
== END 2025-04-17 23:59 | disposition home or self-care (01) ==
LOC: CR 09:00
PROVIDERS: PCP Family Medicine; Visit Provider Internal Medicine Cardiovascular Disease
DX: R69 Illness, unspecified (principal)

== ENCOUNTER 2025-03-29 14:55 | Outpatient (REF) | payer MEDICARE, BC, SELFPAY ==
[2025-03-29 15:35] LABS: HCT 46.3 % (40.0-50.0); HGB 15.0 g/dL (13.5-17.5); MCH 31.3 pg (27.0-33.0); MCHC 32.4 % (32.0-36.0); MCV 97 fL (80-95); MPV 10.5 fL (8.0-11.0); Platelet Count 196 10^3/uL (130-400); RBC 4.79 10^6/uL (4.36-5.78); RDW 14.3 % (11.8-14.1); RDW-SD 51.2 fL; WBC 8.45 10^3/uL (4.4-10.8)
[2025-03-29 16:45] LABS: ALT 25 U/L (16-63); AST 20 U/L (15-37); Albumin 4.1 g/dL (3.4-5.0); Alkaline Phosphatase 54 U/L (46-116); Anion Gap 10.3 mmol/L (3-11); BUN 14 mg/dL (7-18); Bilirubin, Total 0.7 mg/dL (0.2-1.0); CO2 27.7 mmol/L (21.0-32.0); Calcium 9.5 mg/dL (8.5-10.1); Chloride 103 mmol/L (98-107); Estimated GFR 70.01 (mL/min/1.73m2); Glucose 110 mg/dL (74-106); Potassium 4.5 mmol/L (3.5-5.1); Sodium 141 mmol/L (136-145); Total Protein 7.5 g/dL (6.4-8.2)
[2025-03-29 17:08] LABS: Hemoglobin A1C 5.9 % (<5.7)
[2025-03-29 17:15] LABS: Calculated LDL 21 mg/dL (<100); Cholesterol 141 mg/dL (<200); HDL Cholesterol 44 mg/dL (>or=40); Triglyceride 382 mg/dL (<150)
[2025-03-29 17:33] LABS: COMMENT (LAB VIEW ONLY) 206.12 mg/dL; Microalb ug/mg Crea 26.0 ug/mg Cr
== END 2025-03-29 14:56 | disposition home or self-care (01) ==
LOC: NCHCN 14:55
PROVIDERS: PCP Family Medicine; Visit Provider Family Medicine
DX: I25.10 Atherosclerotic heart disease of native coronary artery without angina pectoris (principal); E11.9 Type 2 diabetes mellitus without complications; E78.5 Hyperlipidemia, unspecified
CPT/HCPCS: 80053; 80061; 85027; 82043; 82570; 83036

== ENCOUNTER 2025-04-01 22:39 | Emergency (ER) | payer MEDICARE, BC, SELFPAY ==
[2025-04-01] VITALS (9 sets, daily range): BP systolic 80–103; BP diastolic 57–67; PULSE 90–95; RESP 17–21; TEMP 35.8; O2SAT 89–97
--- NOTE | 2025-04-01 22:30 | DI.RAD_ITS ---
Exam(s) XR PORTABLE CHEST AP EXAM: XR PORTABLE CHEST AP CLINICAL HISTORY: cardiac arrest TECHNIQUE: 2D digital imaging was performed of the chest. One image was obtained. An AP view was obtained. COMPARISON: CR XR CHEST 2V PA LATERAL from 10/12/2024 CR,XR XR PORTABLE CHEST AP from 01/14/2025 FINDINGS: MEDIASTINUM: Normal. HEART: Normal. PULMONARY VASCULATURE: Normal. LUNGS: There are no focal consolidating infiltrates. PLEURAL SPACE: No pleural effusion or pneumothorax. BONE:Within normal limits for the patient's age. OTHER FINDINGS:Normal. IMPRESSION: 1. No acute pulmonary findings. 2. The preliminary [facility] report was reviewed. DATA REPOSITORY: RADIATION DOSE DELIVERED:
--- NOTE | 2025-04-01 22:30 | RT.EKG_ITS ---
APPROVED REPORT Exam: Resting ECG Reason for Exam: rosc Patient Location: E HR:92 bpm ECG Measurements Heart Rate 92 AXIS NC 79 P 0 QRSd 154 QRS -78 QT 422 T 119 QTc 523 Conclusion Sinus rhythm...normal P axis, V-rate 60- 99 LVH with secondary repolarization abnormality...multi-LVH criteria, abnrm ST-T Rhythm ST elevations in V1, V2 and ST depressions II, III, avF concerning for acute ischemia and occlusive [place]
--- NOTE | 2025-04-01 22:46 | W.ED.GENAD ---
Discharge Plan Disposition Patient Disposition: Transfer-Acute Inpatient Care Specific Acute Inpt Facility: [facility] Condition: Critical Discharge Details Clinical Impression: ST elevation (STEMI) myocardial infarction, Cardiac arrest Primary Care Provider: Gene Gill ED Provider: Radha Jean Home Meds and New Rx's Prescriptions: No Action aspirin 81 mg capsule 81 mg PO DAILY furosemide 20 mg tablet 20 mg PO DAILY rosuvastatin 20 mg tablet 20 mg PO DAILY lisinopril 5 mg tablet 5 mg PO DAILY clopidogrel 75 mg tablet 75 mg PO DAILY metoprolol succinate 50 mg Tablet Extended Release 24 Hr 50 mg PO HS allopurinol 100 mg Tablet 100 mg PO DAILY nitroglycerin 0.4 mg Tablet, Sublingual 0.4 mg SUBLINGUAL Q5M PRN lansoprazole 30 mg Tablet,Disintegrat, Delay Rel See Rx Instructions .ROUTE .COMPLEX Rx Instructions: 15 mg orally 1 every other day HPI General Mode of arrival: EMS. Date/Time Provider Initiated Documentation: 04/01/25 22:54. Limitations to Documentation: no limitations. Information obtained by: patient and EMS. HPI Narrative: 75yo M with multivessel cornary artery disease, prior DE, stents in place presenting via EMS with ROSC. Called 911 for general malaise, on EMS arrival began to have chest pain then lost consciousness. CPR started, about 10 minutes. Upon medic arrival found to be in vfib arrest, shocked x 1 120J and continued CPR for one minute after which pt woke and was alert and oriented speaking. EKG with STEMI, elevations V1 V2 and ingerior depressions. Run of vtach for which he recieved amio. Subseuqently boby, recieved 1 dose of atropine and push dose epi. MAP >65 and appropriate HR since then. On arrival pt reports mild chest discomfort 'where they were doing stuff' but not like before. No dififculty breathing. Does not feel like his DE but he had no pain with his DE. In his usual state of health before this event today. Related Data Home Medications ?Medication ?Instructions ?Recorded ?Confirmed allopurinol 100 mg tablet 100 mg PO DAILY 12/19/20 01/13/25 lansoprazole 30 mg delayed See Rx Instructions .Route .COMPLEX 12/19/20 01/13/25 release,disintegrating tablet metoprolol succinate 50 mg 50 mg PO HS 12/19/20 01/13/25 tablet,extended release 24 hr nitroglycerin 0.4 mg sublingual 0.4 mg sublingual Q5M PRN 12/19/20 01/13/25 tablet aspirin 81 mg capsule 81 mg PO DAILY 10/12/24 01/13/25 furosemide 20 mg tablet 20 mg PO DAILY 10/12/24 01/13/25 lisinopril 5 mg tablet 5 mg PO DAILY 10/12/24 01/13/25 rosuvastatin 20 mg tablet 20 mg PO DAILY 10/12/24 01/13/25 clopidogrel 75 mg tablet 75 mg PO DAILY 10/24/24 01/13/25 Allergies Allergy/AdvReac Type Severity Reaction Status Date / Time No Known Allergies Allergy Verified 04/01/25 22:50 General ZORAIDA: 3 Review of Systems Narrative: see HPI Exam Narrative Exam Narrative: General: Alert, well appearing, well nourished, in no acute distress. Head: Normocephalic, atraumatic Neck: Trachea midline, ?Neck supple. ENT: ?MMM.? Cardiac: ?RRR, no murmurs appreciated Resp: No respiratory distress. CTAB. Abd: ?Soft, non-distended, nontender : ?No suprapubic tenderness. No CVA tenderness. Extremities: ?No deformities.? No peripheral edema. Neurologic: GCS 15. ? Moves all extremities freely against gravity Medical Decision Making 75yo M with multivessel cornary artery disease, prior DE, stents in place presenting via EMS with ROSC. Code cart, norepi drip, intubation supplies at bedside on patient arrival. called EMS at 2200 for pt feeling unwell. After 1st responder arrival pt began to have chest pain and then lost consciousness. CPR was started, about 10 minutes of compressions; upon medic arrival patient found to be in vfiib arrest. Shocked x 1 @ 120J and continued CPR for one minute after which pt woke and was alert and oriented and speaking. EKG with STEMI, elevations V1 V2 and inferior depressions. DART activated from scene and is enroute to [facility]. Subsequent run of vta for which he received amio, then boby, and received 1 dose of atropine and push dose epi. MAP >65 and appropriate HR since then. -On arrival pt reports very mild chest discomfort 'where they were doing stuff' but not like before. No difficulty breathing. No indication for emergent intubation. -Normal vital signs on arrival. No hypothemia. EKG again with elevations V1/V2 an inferior depressions, less pronounced than initial. -Plan for ASA 325, heparin bolus and gtt, will discuss plavix load with cardiology. Pt with PIV and IO, 2nd PIV access obtained and labs sent -As DART dispatched from scene and enroute (radioed in to clear for landing shortly after pt arrival to ED) will hold tnk unless advised by cardiology as anticipate transfer immediately to chemical lab technician -POCUS with very limited views, some suggestion of septal wall motion abnormalities. Lactate resulted at ~5, consistent with arrest -Patient denies any chest pain on reassessment. Remains awake, alert, well appearing. BP softer 80's/50's, MAP low-mid 60's. Started on norepi at 5 with good effect. -DART at bedside -Discussed wtih [facility] [place]. Rincon, pt accepted under Dr. Juarez. Plan for transfer directly to chemical lab technician. Raised concern for possible delay to cath on their end and so requested we give TNK here which was done ~45 minutes after patient arrival to ED -Left via DART ~2345, ~60 minutes after ED arrival. Labs below reviewed after patient departure consistent with DE/ROSC; forwarded to [facility]. Lab Data Lab results reviewed: Yes I reviewed the patient's lab results. Labs: Laboratory Tests Range/Units 04/01/25 22:55 WBC (4.4-10.8) 10^3/uL 8.90 RBC (4.36-5.78) 10^6/uL 4.46 Hgb (13.5-17.5) g/dL 14.3 Hct (40.0-50.0) % 43.7 MCV (80-95) fL 98 H MCH (27.0-33.0) pg 32.1 MCHC (32.0-36.0) % 32.7 RDW (11.8-14.1) % 14.3 H Plt Count (130-400) 10^3/uL 176 MPV (8.0-11.0) fL 10.0 Immature Gran % % 0.8 Neutrophils % % 63.5 Lymphocytes % % 28.9 Monocytes % % 5.3 Eosinophils % % 0.9 Basophils % % 0.6 Nucleated RBC % (0.0-0.3) % 0.0 Absolute Neutrophils (1.2-6.7) 10^3/uL 5.66 Absolute Lymphocytes (1.2-3.4) 10^3/uL 2.57 Absolute Monocytes (0.1-0.8) 10^3/uL 0.47 Absolute Eosinophils (0.0-0.7) 10^3/uL 0.08 Absolute Basophils (0.0-0.2) 10^3/uL 0.05 PT (9.1-11.1) sec 10.9 INR (0.9-1.1) 1.1 APTT (20.6-30.2) sec 22.5 VBG pH (7.31-7.41) 7.28 L VBG pCO2 (41-51) mmHg 51 VBG pO2 mmHg 27 VBG HCO3 (23-28) mmol/L 24 VBG Total CO2 (24-29) mmol/L 22 L VBG O2 Saturation % 38 VBG Base Excess (-2-3) mmol/L -3 L VBG Lactate (<or=2.0) mmol/L 5.8 H* Sodium (136-145) mmol/L 141 Potassium (3.5-5.1) mmol/L 4.0 Chloride (98-107) mmol/L 102 Carbon Dioxide (21.0-32.0) mmol/L 25.2 Anion Gap (3-11) mmol/L 13.8 H BUN (7-18) mg/dL 14 Creatinine (0.70-1.30) mg/dL 1.5 H Est GFR (CKD-EPI 2020) (mL/min/1.73m2) 48.25 Glucose (74-106) mg/dL 248 H Calcium (8.5-10.1) mg/dL 8.9 Magnesium (1.8-2.4) mg/dL 1.6 L Total Bilirubin (0.2-1.0) mg/dL 0.4 AST (15-37) U/L 52 H ALT (16-63) U/L 42 Alkaline Phosphatase (46-116) U/L 57 Troponin I (<or=76) ng/L 172 H* Total Protein (6.4-8.2) g/dL 7.2 Albumin (3.4-5.0) g/dL 3.5 ABO/Rh A Positive Antibody Screen NEGATIVE Critical Care Time Critical Care Time Critical Care Time: Yes Total Critical Care Time: 55 Attestation: Due to a high probability of clinically significant, life threatening deterioration, the patient required my highest level of preparedness to intervene emergently and I personally spent this critical care time directly and personally managing the patient. This critical care time included obtaining a history; examining the patient; pulse oximetry; ordering and review of studies; arranging urgent treatment with development of a management plan; evaluation of patient's response to treatment; frequent reassessment; and, discussions with other providers. This critical care time was performed to assess and manage the high probability of imminent, life-threatening deterioration that could result in multi-organ failure. It was exclusive of separately billable procedures and treating other patients? PFSH All Active Problems (Updated 04/02/25 @ 00:17 by Radha Jean MD) Cardiac arrest (Acute) ST elevation (STEMI) myocardial infarction (Acute) Sinus bradycardia (Acute) Bilateral inguinal hernia with obstruction (Acute) Fecal occult blood test positive (Acute) Medical History (Updated 04/02/25 @ 00:17 by Rahda Jean MD) Bilateral inguinal hernia Coronary artery disease Surgical History H/O cardiac catheterization [address] Sears @ [facility] 08/2024 Coronary Stent Colonoscopy - MAC (02/28/16) Social History Smoking/Tobacco Use Status: Former Tobacco Use Quit Date: 06/14/11 Smoking risk assessment performed?: Yes Alcohol Intake: current Alcohol Intake frequency: 0-2 drinks per day Alcohol type: beer and wine Drug use: Never Substance use type: does not use Details: 1 beer or wine every night. a glass and a half of wine before chest pain Housing: house Do you feel safe at home: Yes Do you feel safe in your relationship?: Yes POCUS Exam (ED) Limited Cardiac Exam DATE OF EXAM: 04/02/25 TIME OF EXAM: 23:00 REASON FOR EXAM: Cardiac arrest VISUALIZED STRUCTURES: Four Chambers VIEW OBTAINED: Apical 4-Chamber, Parasternal long-axis, Parasternal short-axis and Subxiphoid PERTINENT FINDINGS/IMPRESSION: No pericardial effusion and No RV dilation Exam complete
[2025-04-01] MEDS: Aspirin 81 MG CHEW (22:50)
[2025-04-01 23:02] LABS: BE (Venous) -3 mmol/L (-2-3); HCO3 (Venous) 24 mmol/L (23-28); O2 Sat (Venous) 38 %; TCO2 (Venous) 22 mmol/L (24-29); pCO2 (Venous) 51 mmHg (41-51); pO2 (Venous) 27 mmHg
[2025-04-01 23:06] LABS: Abs Immature Grans 0.07 10^3/uL (0.0-0.06); HCT 43.7 % (40.0-50.0); HGB 14.3 g/dL (13.5-17.5); Immature Grans % 0.8 %; MCH 32.1 pg (27.0-33.0); MCHC 32.7 % (32.0-36.0); MCV 98 fL (80-95); MPV 10.0 fL (8.0-11.0); Platelet Count 176 10^3/uL (130-400); RBC 4.46 10^6/uL (4.36-5.78); RDW 14.3 % (11.8-14.1); RDW-SD 51.2 fL; WBC 8.90 10^3/uL (4.4-10.8)
[2025-04-01] MEDS: Norepinephrine in D5W 8 MG/250 ML BAG 9.4 MG IV (23:14)
[2025-04-01 23:17] LABS: INR 1.1 (0.9-1.1); Prothrombin Time 10.9 sec (9.1-11.1)
[2025-04-01 23:20] LABS: PTT Activated 22.5 sec (20.6-30.2)
[2025-04-01 23:26] LABS: ALT 42 U/L (16-63); AST 52 U/L (15-37); Albumin 3.5 g/dL (3.4-5.0); Alkaline Phosphatase 57 U/L (46-116); Anion Gap 13.8 mmol/L (3-11); BUN 14 mg/dL (7-18); Bilirubin, Total 0.4 mg/dL (0.2-1.0); CO2 25.2 mmol/L (21.0-32.0); Calcium 8.9 mg/dL (8.5-10.1); Chloride 102 mmol/L (98-107); Estimated GFR 48.25 (mL/min/1.73m2); Glucose 248 mg/dL (74-106); Magnesium 1.6 mg/dL (1.8-2.4); Potassium 4.0 mmol/L (3.5-5.1); Sodium 141 mmol/L (136-145); Total Protein 7.2 g/dL (6.4-8.2)
[2025-04-01 23:28] LABS: Troponin I 172 ng/L (<or=76)
[2025-04-01] MEDS: Clopidogrel 300 MG TAB PO (23:28)
[2025-04-01] MEDS: Tenecteplase 50 MG KIT 40 MG IVP (23:29)
[2025-04-01] MEDS: Heparin in 0.45% NaCl 25,000 UNIT/250 ML BAG 1 UNIT IVINF (23:41)
--- NOTE | 2025-04-02 00:02 | DI.VRAD_ITS ---
PROCEDURE INFORMATION: Exam: XR Chest Exam date and time: 04/01/2025 11:09 PM Age: 75 years old Clinical indication: Other: Cardiac arrest TECHNIQUE: Imaging protocol: Radiologic exam of the chest. Views: 1 view. COMPARISON: CR XR PORTABLE CHEST AP 01/14/2025 1:29 AM FINDINGS: Lungs: Stable appearing interstitial markings. No focal consolidation. Pleural spaces: Unremarkable. No pleural effusion. No pneumothorax. Heart/Mediastinum: Unremarkable. No cardiomegaly. Bones/joints: No acute osseous abnormality. Soft tissues: Resuscitation pads are noted over the chest wall. IMPRESSION: No acute cardiopulmonary findings. Dictated and Authenticated by: Josue Charles MD. Orderin Juancho Denny MD
== END 2025-04-02 00:17 | disposition short-term general hospital (02) ==
PROVIDERS: Emergency Medicine; Emergency Provider Student in an Organized Health Care Education/Training Program; PCP Family Medicine
DX: I46.9 Cardiac arrest, cause unspecified (principal); I21.3 ST elevation (STEMI) myocardial infarction of unspecified site
CPT/HCPCS: 36415; 80053; 82805; 86850; 86900; 86901; 93005; 93308; 96365; 96367; 96375; 99291; 71045; 83605; 83735; 84484; 85025; 85610; 85730; 93010; J1644; J3101

== ENCOUNTER 2025-05-04 11:00 | Outpatient (RCR) | payer MEDICARE, BC, SELFPAY ==
--- NOTE | 2025-05-04 10:30 | RT.EKG_ITS ---
APPROVED REPORT Exam: Resting ECG Reason for Exam: CR Intake Appointment - Baseline EKG Patient Location: O HR:60 bpm ECG Measurements Heart Rate 60 AXIS CO 55 P [id number] QRSd 135 QRS -63 QT 395 T 119 QTc 395 Conclusion Atrial and ventricular-paced rhythm
== END 2025-05-18 23:59 | disposition home or self-care (01) ==
LOC: CR 11:00
PROVIDERS: PCP Family Medicine; Referring Provider Internal Medicine Cardiovascular Disease; Visit Provider Internal Medicine Cardiovascular Disease
DX: Z51.89 Encounter for other specified aftercare (principal); Z95.818 Presence of other cardiac implants and grafts; I46.9 Cardiac arrest, cause unspecified
CPT/HCPCS: S9472

== ENCOUNTER 2025-05-18 09:00 | Outpatient (RCR) | payer MEDICARE, BC, SELFPAY | END 2025-05-18 23:59 | disposition home or self-care (01) | LOC: CR 09:00 | PROVIDERS: PCP Family Medicine; Visit Provider Internal Medicine Cardiovascular Disease | DX: I46.2 Cardiac arrest due to underlying cardiac condition (principal); I21.3 ST elevation (STEMI) myocardial infarction of unspecified site; Z95.5 Presence of coronary angioplasty implant and graft; Z95.818 Presence of other cardiac implants and grafts; Z51.89 Encounter for other specified aftercare | CPT/HCPCS: S9472 ==

== ENCOUNTER 2025-07-17 09:00 | Outpatient (RCR) | payer SELFPAY ==
[2025-06-18 00:22] VITALS: BP 135/63; PULSE 60
[2025-06-19 10:23] VITALS: BP 132/59; PULSE 60
[2025-06-21 09:35] VITALS: BP 129/72; PULSE 60
[2025-06-26 09:27] VITALS: BP 125/67; PULSE 60
[2025-06-28 09:11] VITALS: BP 145/65; PULSE 60
[2025-07-03 09:00] VITALS: BP 128/60; PULSE 60
[2025-07-05 09:22] VITALS: BP 139/67; PULSE 63
[2025-07-10 09:24] VITALS: BP 138/69; PULSE 60
[2025-07-17 09:25] VITALS: BP 136/71; PULSE 60
== END 2025-07-18 23:59 | disposition home or self-care (01) ==
LOC: CR 09:00
PROVIDERS: PCP Family Medicine; Visit Provider Internal Medicine Cardiovascular Disease
DX: R69 Illness, unspecified (principal)

== ENCOUNTER 2025-07-17 15:21 | Outpatient (REF) | payer MEDICARE, BC, SELFPAY ==
[2025-07-17 21:36] LABS: HCT 45.6 % (40.0-50.0); HGB 14.8 g/dL (13.5-17.5); MCH 31.6 pg (27.0-33.0); MCHC 32.5 % (32.0-36.0); MCV 97 fL (80-95); MPV 10.2 fL (8.0-11.0); Platelet Count 204 10^3/uL (130-400); RBC 4.68 10^6/uL (4.36-5.78); RDW 13.9 % (11.8-14.1); RDW-SD 49.9 fL; WBC 9.09 10^3/uL (4.4-10.8)
[2025-07-17 21:52] LABS: ALT 32 U/L (10-49); AST 39 U/L (<34); Albumin 4.6 g/dL (3.2-5.0); Alkaline Phosphatase 68 U/L (46-116); Anion Gap 9 mmol/L (3-11); BUN 15 mg/dL (9-23); Bilirubin, Total 0.5 mg/dL (0.2-1.2); CO2 30.0 mmol/L (20.0-31.0); Calcium 9.7 mg/dL (8.3-10.6); Chloride 101 mmol/L (98-107); Glucose 144 mg/dL (74-106); Magnesium 1.7 mg/dL (1.6-2.6); Potassium 4.2 mmol/L (3.5-5.1); Sodium 140 mmol/L (136-145); Total Protein 7.8 g/dL (5.7-8.2); Uric Acid 6.9 mg/dL (3.7-9.2)
[2025-07-17 21:53] LABS: Hemoglobin A1C 6.0 % (<5.7)
== END 2025-07-17 15:22 | disposition home or self-care (01) ==
LOC: NCHCN 15:21
PROVIDERS: PCP Family Medicine; Visit Provider Family Medicine
DX: I25.10 Atherosclerotic heart disease of native coronary artery without angina pectoris (principal); E11.9 Type 2 diabetes mellitus without complications; E83.42 Hypomagnesemia; M10.9 Gout, unspecified
CPT/HCPCS: 80053; 85027; 83036; 83735; 84550